=== PATIENT | male | born 1955 | race Caucasian/White ===

== ENCOUNTER 2020-06-04 10:45 | Inpatient (IN) ==
[2020-06-04] MEDS ORDERED: IOPAMIDOL 100 ML BOTTLE IV ONE (10:46)
[2020-06-04] MEDS ORDERED: DILTIAZEM 25 MG/5 ML VIAL IV ONE (11:11)
[2020-06-04] MEDS ORDERED: DILTIAZEM 125 MG in DEXTROSE 5% IN WATER 100 ML IV SCH (11:15)
--- NOTE | 2020-06-04 11:34 | Emergency Department Note ---
SOB HPI General Chief Complaint: Shortness of Breath/Dyspnea Stated Complaint: SOB Time Seen by Provider: 06/04/20 10:53 Source: patient Mode of arrival: wheelchair Limitations: no limitations and altered mental status (The patient is somewhat somnolent but able to carry on conversation.) History of Present Illness HPI Narrative: Narrative: Presents to room T8 for evaluation of shortness of breath and chest tightness with palpitations. The patient has a past medical history of atrial fibrillation and is currently taking warfarin. The patient also has peripheral vascular disease and has had revascularization in the past. The patient has chronic claudication and lower extremity discoloration. The patient has a chronic wound on the dorsum of his right second toe. The patient reports symptoms started last night with worsening tightness in his chest and associated shortness of breath. On arrival the patient is noted to be hypoxic and dyspneic and somewhat somnolent. The patient denies any new symptoms in his lower extremities and states that they are "always this way". No reported fevers or chills. No cough or sputum production. No nausea vomiting. Symptoms are constant. No exacerbating or alleviating factors reported. Related Data Home Medications Medication Instructions Recorded Confirmed lisinopril PO 01/30/20 02/08/20 spironolactone PO 01/30/20 02/08/20 torsemide mg PO 01/30/20 02/08/20 warfarin 10 mg PO 01/30/20 02/08/20 Previous Rx's Medication Instructions Recorded gabapentin 300 mg capsule 300 mg .ROUTE .COMPLEX #90 cap 02/08/20 tramadol 50 mg tablet 50 mg PO QHS PRN #20 tab 02/08/20 ondansetron 4 mg PO Q6H PRN #10 tab 02/18/20 tramadol 50 mg PO Q6H PRN #10 tab 02/28/20 naproxen sodium [Anaprox DS] 550 mg PO BID #20 tab 04/26/20 penicillin V potassium 500 mg PO TID #10 tab 04/26/20 Allergies Allergy/AdvReac Type Severity Reaction Status Date / Time No Known Drug Allergies Allergy Verified 06/04/20 10:57 Review of Systems ROS ROS Narrative: Narrative: All systems ED: reviewed and negative except as stated. [facility] Narrative Patient History Narrative: Narrative: Medical/Surgical/Family History All Active Problems (Updated 06/04/20 @ 14:57 by Bright Campbell MD) Acute hypotension (Acute) Bradycardia (Acute) Acute dehydration (Acute) Nausea (Acute) Peripheral neuropathy (Acute) Odontalgia (Acute) Chest tightness (Acute) Dyspnea (Acute) Pulmonary edema (Acute) Atrial fibrillation (Acute) Acute dyspnea (Acute) Chest pain (Acute) Atrial fibrillation with RVR (Acute) Peripheral vascular disease (Acute) Difficulty walking (Chronic) Numbness (Chronic) Weakness (Chronic) Heartburn (Chronic) SOB (shortness of breath) (Chronic) Chronic cough (Chronic) Fluttering heart (Chronic) Palpitation (Chronic) Ringing in ears (Chronic) Weight loss (Chronic) Heart disease (Chronic) Venous stasis (Chronic) Right leg pain (Chronic) GERD (gastroesophageal reflux disease) (Chronic) History of DVT (deep vein thrombosis) (Chronic) Bronchitis (Chronic) Chronic pain (Chronic) Illicit drug use (Chronic) Alcohol abuse (Chronic) Hyperlipidemia (Chronic) Hypertension (Chronic) Congestive heart failure (Chronic) Coronary heart disease (Chronic) Arrhythmia (Chronic) Blood clot in vein (Chronic) Bilateral leg pain (Chronic) No pertinent past surgical history (Chronic) Chronic stasis dermatitis (Chronic) Peripheral neuropathy (Chronic) Chest pain (Chronic) Stasis dermatitis of both legs (Chronic) Atrial fibrillation with RVR (Chronic) Medical History (Updated 06/04/20 @ 14:57 by Bright Campbell MD) Alcohol abuse Arrhythmia Atrial fibrillation with RVR Bilateral leg pain Blood clot in vein both legs Bronchitis Chest pain Chronic cough Chronic pain Chronic stasis dermatitis Congestive heart failure Coronary heart disease Difficulty walking Fluttering heart GERD (gastroesophageal reflux disease) Heart disease Heartburn History of DVT (deep vein thrombosis) Hyperlipidemia Hypertension Illicit drug use Numbness Palpitation Peripheral neuropathy Right leg pain Ringing in ears SOB (shortness of breath) Stasis dermatitis of both legs Venous stasis Weakness Weight loss Surgical History No pertinent past surgical history Family History Mother Diabetes Heart attack Bruising Heart disease Clotting disorder Father Brainstem stroke Clotting disorder Grandmother Leukemia Cancer Sister High blood pressure Chronic pain Heart disease Diabetes Social History Smoking Status: Current every day smoker Alcohol Intake Frequency: a few times a week Substance Use: marijuana Exam Narrative Narrative: Narrative: General Limitations: no limitations and altered mental status (The patient is somewhat somnolent but able to carry on conversation.) General appearance: Present alert and in distress (The patient does seem to have some mild respiratory distress) Head Head: Present atraumatic, normocephalic and normal inspection Eye Eye: Present normal appearance and EOMI; Absent conjunctival injection ENT ENT: Present normal exam and mucous membranes moist Neck Neck: Present normal inspection and trachea midline Respiratory Respiratory: Present normal lung sounds bilaterally and decreased breath sounds Cardiovascular Cardiovascular: Present tachycardia, irregular rhythm and normal heart sounds Adbominal Abdominal: Present soft; Absent distention, tenderness, guarding and rebound Extremities Extremities: Present other (Patient has violaceous changes of chronic venous sta sis/peripheral vascular disease. The patient does have some chronic nonhealing wounds on the medial aspect of the right pretibial region. He also has a nonhealing wound noted on the right foot.); Absent tenderness Back Back: Present normal inspection; Absent tenderness Neurological Neurological: Present alert, oriented X3 and CN II-XII intact; Absent motor sensory deficit Psychiatric Psychiatric: Present normal affect and normal mood Skin Skin: Present warm (WNL) and dry; Absent rash Course Vital Signs Vital signs: Vital Signs Pulse Oximetry (%) 80 L 06/04/20 10:45 Temperature 95.6 F L 06/04/20 10:46 Pulse Rate 91 H 06/04/20 13:55 Respiratory Rate 32 H 06/04/20 13:31 Blood Pressure 120/79 06/04/20 13:55 Pulse Oximetry (%) 93 06/04/20 13:55 [facility] MDM Narrative Medical decision making narrative: Narrative: Medical Records Medical records reviewed: Yes I reviewed the patient's medical records. Lab Data Lab results reviewed: Yes I reviewed the patient's lab results. Result diagrams: 06/04/20 11:48 06/04/20 11:48 Labs: Lab Results 06/04/20 06/04/20 06/04/20 Range/Units 11:48 11:48 11:48 WBC 5.5 (4.5-11.0) K/mcL RBC 4.02 L (4.50-5.90) M/mcL Hgb 10.6 L (13.5-16.5) g/dL Hct 34.4 L (41.0-55.0) % MCV 85.6 (80.0-100.0) fL MCH 26.4 (26.0-34.0) pg MCHC 30.8 L (31.0-36.0) g/dL RDW 17.6 H (11.5-14.5) % Plt Count 355 (140-440) K/mcL MPV 10.6 H (7.4-10.4) fL Neut % (Auto) 73.0 (38.0-78.0) % Lymph % (Auto) 18.7 (15.0-49.0) % Alexander % (Auto) 7.0 (1.0-12.0) % Eos % (Auto) 0.4 (0.0-7.0) % Baso % (Auto) 0.9 (0.0-2.0) % Lymph # (Auto) 1.02 L (1.50-4.80) K/mcL Alexander # (Auto) 0.38 (0.10-0.90) K/mcL Eos # (Auto) 0.02 (0.00-0.70) K/mcL Baso # (Auto) 0.05 (0.00-0.20) K/mcL Absolute Neutrophils 3.99 (1.80-8.00) K/mcL PT (11.9-14.5) sec INR (0.9-1.1) VBG Lactic Acid (0.5-2.0) mmol/L Sodium 135 (133-145) mmol/L Potassium 4.7 (3.3-5.1) mmol/L Chloride 100 (96-108) mmol/L Carbon Dioxide 23 (22-30) mmol/L Anion Gap 12.0 (8.0-16.0) BUN 23 (8-23) mg/dL Creatinine 1.1 (0.7-1.2) mg/dL GFR Calculation 69 Glucose 120 H (70-105) mg/dL Calcium 9.3 (8.6-10.4) mg/dL Total Bilirubin 1.3 H (0.1-1.0) mg/dL AST 72 H (<40) U/L ALT 125 H (<40) U/L Alkaline Phosphatase 157 H (39-117) U/L Troponin T 0.03 H (<0.03) ng/mL NT-Pro-B Natriuret Pep 59325.0 H (<125.0) pg/mL Total Protein 7.4 (5.9-8.4) gm/dL Albumin 3.5 (3.2-5.2) gm/dL Globulin 3.9 H (2.2-3.7) gm/dL Albumin/Globulin Ratio 0.9 L (1.0-2.3) 06/04/20 06/04/20 Range/Units 11:48 11:48 WBC (4.5-11.0) K/mcL RBC (4.50-5.90) M/mcL Hgb (13.5-16.5) g/dL Hct (41.0-55.0) % MCV (80.0-100.0) fL MCH (26.0-34.0) pg MCHC (31.0-36.0) g/dL RDW (11.5-14.5) % Plt Count (140-440) K/mcL MPV (7.4-10.4) fL Neut % (Auto) (38.0-78.0) % Lymph % (Auto) (15.0-49.0) % Alexander % (Auto) (1.0-12.0) % Eos % (Auto) (0.0-7.0) % Baso % (Auto) (0.0-2.0) % Lymph # (Auto) (1.50-4.80) K/mcL Alexander # (Auto) (0.10-0.90) K/mcL Eos # (Auto) (0.00-0.70) K/mcL Baso # (Auto) (0.00-0.20) K/mcL Absolute Neutrophils (1.80-8.00) K/mcL PT 51.7 H (11.9-14.5) sec INR 5.4 H (0.9-1.1) VBG Lactic Acid 3.8 H (0.5-2.0) mmol/L Sodium (133-145) mmol/L Potassium (3.3-5.1) mmol/L Chloride (96-108) mmol/L Carbon Dioxide (22-30) mmol/L Anion Gap (8.0-16.0) BUN (8-23) mg/dL Creatinine (0.7-1.2) mg/dL GFR Calculation Glucose (70-105) mg/dL Calcium (8.6-10.4) mg/dL Total Bilirubin (0.1-1.0) mg/dL AST (<40) U/L ALT (<40) U/L Alkaline Phosphatase (39-117) U/L Troponin T (<0.03) ng/mL NT-Pro-B Natriuret Pep (<125.0) pg/mL Total Protein (5.9-8.4) gm/dL Albumin (3.2-5.2) gm/dL Globulin (2.2-3.7) gm/dL Albumin/Globulin Ratio (1.0-2.3) ED POC Tests ED POC Tests: VICENTA - Influenza A Negative VICENTA - Influenza B Negative VICENTA - SARS Antigen Negative Radiology Data Radiology results reviewed: Yes I reviewed the patient's radiology results. EKG Data EKG #1: EKG attestation: Yes I reviewed and interpreted this EKG., Yes There are no EKG findings of acute coronary syndrome and Yes This EKG will be read by engineering mathematician EKG results narrative: Atrial fibrillation with rapid ventricular response, rate 150, prolonged QTC at 506, normal ST, normal QRS, no ectopy Rhythm Strip Data Rhythm Strip Rate: 145 Interpretation: Atrial fibrillation with rapid ventricular response Pulse Oximetry Data Pulse Ox %: 80 Interpretation: room air, hypoxia, corrected after being placed on 4 L via nasal cannula CC TIME Critical Care Time Critical Care Time: Yes Total Critical Care Time: 60 Attestation: Approximately 60 minutes of critical care time was used in order to assess and manage the high probability of imminent or life threatening deterioration which required my highest level of preparedness and interventions with frequent patient assessments. This time is excluding time spent on separately billable procedures. On arrival patient presented with shortness of breath, tachycardia and chest pressure. The patient's initial EKG showed an atrial fibrillation with rapid ventricular response and a rate of 150. There was no injury or ischemia pattern. The patient was treated initially with a Cardizem bolus followed by Cardizem drip. This was titrated to effect and ultimately his heart rate was re duced to the mid 90s. The patient's chest x-ray did did show evidence of moderate to severe pulmonary edema pleural effusions. The patient's BNP is markedly elevated. The patient was treated with a dose of IV Lasix. The patient's labs including CBC, chemistry and troponin are otherwise unremarkable. The patient's lactic acid level is elevated however I do not suspect a source of infection at this time. Blood cultures were drawn. The patient does take warfarin and his INR was noted to be elevated at 5.4. There is no clinical evidence to suspect bleeding and I believe the patient can be observed and does not require vitamin K or additional INR correction at this time. I did discuss the case with the hospitalist. The patient does have chronic wounds on his lower extremity and thus a single dose of empiric antibiotics was given including vancomycin and Zosyn. The patient will be admitted at this time. Discharge Plan Patient/Caregiver Discharge Instructions Pt seen by MECHANICAL MAINTENANCE FOREMAN/PA only: No Clinical Impression: Acute dyspnea, Pulmonary edema, Chest pain, Atrial fibrillation with RVR, Peripheral vascular disease Patient Disposition: Xfer As Inpt ([facility]) Follow up with: Noam Caputo DO [Primary Care Provider] - Prescriptions: No Action tramadol 50 mg tablet 50 mg PO QHS PRN (Reason: pain) Qty: 20 RF: 0 gabapentin [Neurontin] 300 mg capsule 300 mg .ROUTE .COMPLEX Qty: 90 RF: 0 spironolactone 25 mg tablet PO RF: 0 warfarin 5 mg tablet 10 mg PO RF: 0 lisinopril 40 mg tablet PO RF: 0 torsemide 20 mg tablet PO RF: 0 ondansetron 4 mg tablet,disintegrating 4 mg PO Q6H PRN (Reason: nausea and vomiting) Qty: 10 RF: 0 tramadol 50 mg tablet 50 mg PO Q6H PRN (Reason: pain) Qty: 10 RF: 0 penicillin V potassium 500 mg tablet 500 mg PO TID Qty: 10 RF: 0 naproxen sodium [Anaprox DS] 550 mg tablet 550 mg PO BID Qty: 20 RF: 0
[2020-06-04 12:30] LABS: Basophils # (Auto) 0.05 K/mcL (0.00-0.20); Basophils % (Auto) 0.9 % (0.0-2.0); Eosinophils # (Auto) 0.02 K/mcL (0.00-0.70); Eosinophils % (Auto) 0.4 % (0.0-7.0); Hematocrit 34.4 % (41.0-55.0); Hemoglobin 10.6 g/dL (13.5-16.5); Lymphocytes # (Auto) 1.02 K/mcL (1.50-4.80); Lymphocytes % (Auto) 18.7 % (15.0-49.0); Mean Cell Volume 85.6 fL (80.0-100.0); Mean Corpuscular HGB Conc 30.8 g/dL (31.0-36.0); Mean Platelet Volume 10.6 fL (7.4-10.4); Monocytes # (Auto) 0.38 K/mcL (0.10-0.90); Platelet Count 355 K/mcL (140-440); RBC 4.02 M/mcL (4.50-5.90); Red Cell Distribution Width 17.6 % (11.5-14.5); WBC 5.5 K/mcL (4.5-11.0)
[2020-06-04 12:51] LABS: ALT/SGPT 125 U/L (<40); AST/SGOT 72 U/L (<40); Albumin 3.5 gm/dL (3.2-5.2); Albumin/Globulin Ratio 0.9 (1.0-2.3); Alkaline Phosphatase 157 U/L (39-117); Bilirubin,Total 1.3 mg/dL (0.1-1.0); Blood Urea Nitrogen 23 mg/dL (8-23); Calcium 9.3 mg/dL (8.6-10.4); Carbon Dioxide 23 mmol/L (22-30); Chloride 100 mmol/L (96-108); Globulin 3.9 gm/dL (2.2-3.7); Glomerular Filtration Rate 69; Glucose 120 mg/dL (70-105)
[2020-06-04 12:54] LABS: INR 5.4 (0.9-1.1); Prothrombin Time 51.7 sec (11.9-14.5)
--- NOTE | 2020-06-04 13:39 | XRay Report ---
CLINICAL INFORMATION: soa COMPARISON: 05/04/2020 FINDINGS: Moderate cardiomegaly is unchanged. Mediastinum is unremarkable. Pulmonary vessels are markedly congested there is moderate peribronchovascular edema. Mild airspace disease in both medial bases has improved. Small bilateral pleural effusions noted. IMPRESSION: Moderate/severe CHF Improving bibasilar infiltrates - now small Interpreted and Authenticated by: Erlin Espinoza 06/04/20
[2020-06-04] MEDS ORDERED: FUROSEMIDE 40 MG/4 ML VIAL IV ONE (14:04)
--- NOTE | 2020-06-04 14:08 | Cat Scan Report ---
CLINICAL INFORMATION: Positive COMPARISON: None. TECHNIQUE: 80ml of Isovue-370 were injected intravenously. Using SmartPrep to maximize pulmonary artery opacification, .625mm helical slices were obtained from the lung apices through the lung bases. Following reconstruction, 2.5 mm sagittal, coronal, and axial reformations were processed. The exam was reviewed at mediastinal, lung, and bone windows. The exam was performed using radiation dose optimization techniques including, but not limited to, automated exposure control, adjustment of the mA and/or kV according to patient size and use of iterative reconstruction technique. FINDINGS: Pulmonary artery opacification is suboptimal, however pulmonary arteries are normal diameter and no central emboli are identified. Thoracic aorta is not opacified but is normal diameter. Mildly enlarged lymph nodes in the lower mediastinum including the lower paratracheal, AP window and pericarinal region ranging up to 18 mm. Findings compatible with benign reactive adenopathy. The esophagus is grossly normal. The thyroid is unremarkable. Pulmonary parenchymal windows show mild congestion of peripheral pulmonary vasculature and groundglass airspace disease in a peribronchovascular distribution with mild edema in the interlobular septa and a mosaic pattern. In addition, there are moderate bilateral pleural effusions. Effusions have resulted in subsegmental compressive atelectasis in the posterior lower lobes. No definite infiltrates. Bones soft tissues of the chest wall show no abnormality. Images should the superior abdomen show 3-4 stones the gallbladder ranging up to 1 cm. Moderate pancreatic atrophy appreciated IMPRESSION: 1. No evidence of pulmonary embolus. 2. Moderate CHF. 3. Moderate bilateral pleural effusions 4. Mild atelectasis in the lung bases. 5. Cholelithiasis 6. Moderate pancreatic atrophy Interpreted and Authenticated by: Erlin Espinoza 06/04/20
[2020-06-04] MEDS ORDERED: VANCOMYCIN 1,000 MG in 0.9 % SODIUM CHLORIDE 250 ML IV ONE (14:29)
[2020-06-04] MEDS ORDERED: PIPERACILLIN SODIUM/TAZOBACTAM 4.5 GM in DEXTROSE 5% IN WATER 50 ML IV ONE (14:29)
--- NOTE | 2020-06-04 14:37 | Internal Med History&Physical ---
HPI History of Present Illness Patient information: Note initiated : 06/04/20 at 2:36 pm Service Date, if different from initiated Date: [] Patient: Pernell Granda a 65 y/o M admitted on for Shortness of breath. Chief Complaint: [] History of present illness: Mr. Granda is a 65 year old M with history of severe peripheral disease/A. fib on anticoagulation/morbid obesity/chronic lower extremity lymphedema/venous ulcers who presents to the ER with worsening shortness of breath/lightheadedness dizziness and chest palpitation. Patient symptoms started roughly 4 days prior to presentation with gradually progressive dyspnea/orthopnea and has not been able to sleep over the last 4 nights or able to lay supine. He has associated nausea and heaving. Increasing concerns he now presents for evaluation. Initial work-up was consistent with A. fib RVR and acute pulmonary edema on chest imaging with pleural effusion. Hospital service was consulted after patient was started on diltiazem drip achieving rate control around 120. Also patient was started on antibiotic coverage after cultures were drawn for suspicious infiltrates noted on chest imaging. At the time of my evaluation patient is very anxious, unable to talk in full sentences. On for his oxygen maintaining sats mid 90s which has improved from low 80s on presentation. He denies hemoptysis/productive sputum/fever, shaking chills, diarrhea, hematuria, dysuria. He endorses a chronic lower extremity dusky discoloration below the knee with ulceration second toe. Endorses that he has had a lower extremity bypass that has improved the circulation. Is currently on anticoagulation on Coumadin with current INR at 5.3. He has been fired from his cardiology and PCP care due to poor adherence and a no-show for appointments. He denies excessive salt diet/sick contact/NSAID use Review of systems 10 point review system was performed and is negative except for ones discussed above PFSH PFSH All Active Problems (Updated 06/04/20 @ 14:57 by Bright Campbell MD) Acute hypotension (Acute) Bradycardia (Acute) Acute dehydration (Acute) Nausea (Acute) Peripheral neuropathy (Acute) Odontalgia (Acute) Chest tightness (Acute) Dyspnea (Acute) Pulmonary edema (Acute) Atrial fibrillation (Acute) Acute dyspnea (Acute) Chest pain (Acute) Atrial fibrillation with RVR (Acute) Peripheral vascular disease (Acute) Difficulty walking (Chronic) Numbness (Chronic) Weakness (Chronic) Heartburn (Chronic) SOB (shortness of breath) (Chronic) Chronic cough (Chronic) Fluttering heart (Chronic) Palpitation (Chronic) Ringing in ears (Chronic) Weight loss (Chronic) Heart disease (Chronic) Venous stasis (Chronic) Right leg pain (Chronic) GERD (gastroesophageal reflux disease) (Chronic) History of DVT (deep vein thrombosis) (Chronic) Bronchitis (Chronic) Chronic pain (Chronic) Illicit drug use (Chronic) Alcohol abuse (Chronic) Hyperlipidemia (Chronic) Hypertension (Chronic) Congestive heart failure (Chronic) Coronary heart disease (Chronic) Arrhythmia (Chronic) Blood clot in vein (Chronic) Bilateral leg pain (Chronic) No pertinent past surgical history (Chronic) Chronic stasis dermatitis (Chronic) Peripheral neuropathy (Chronic) Chest pain (Chronic) Stasis dermatitis of both legs (Chronic) Atrial fibrillation with RVR (Chronic) Medical History (Updated 06/04/20 @ 14:57 by Bright Campbell MD) Alcohol abuse Arrhythmia Atrial fibrillation with RVR Bilateral leg pain Blood clot in vein both legs Bronchitis Chest pain Chronic cough Chronic pain Chronic stasis dermatitis Congestive heart failure Coronary heart disease Difficulty walking Fluttering heart GERD (gastroesophageal reflux disease) Heart disease Heartburn History of DVT (deep vein thrombosis) Hyperlipidemia Hypertension Illicit drug use Numbness Palpitation Peripheral neuropathy Right leg pain Ringing in ears SOB (shortness of breath) Stasis dermatitis of both legs Venous stasis Weakness Weight loss Surgical History No pertinent past surgical history Family History Mother Diabetes Heart attack Bruising Heart disease Clotting disorder Father Brainstem stroke Clotting disorder Grandmother Leukemia Cancer Sister High blood pressure Chronic pain Heart disease Diabetes Social History (Updated 02/08/20 @ 14:19 by Tanisha Hopson) marital status: education level: master's degree occupational status: retired occupation: psychologist alcohol intake frequency: a few times a week substance use type: marijuana MEDS/ALLERGIES Home Medications and Allergies Home Medications Medication Instructions Recorded Confirmed Type lisinopril PO 01/30/20 02/08/20 History spironolactone PO 01/30/20 02/08/20 History torsemide mg PO 01/30/20 02/08/20 History warfarin 10 mg PO 01/30/20 02/08/20 History gabapentin 300 mg capsule 300 mg .ROUTE .COMPLEX #90 cap 02/08/20 02/08/20 Rx tramadol 50 mg tablet 50 mg PO QHS PRN #20 tab 02/08/20 02/08/20 Rx ondansetron 4 mg PO Q6H PRN #10 tab 02/18/20 Rx tramadol 50 mg PO Q6H PRN #10 tab 02/28/20 Rx naproxen sodium [Anaprox DS] 550 mg PO BID #20 tab 04/26/20 Rx penicillin V potassium 500 mg PO TID #10 tab 04/26/20 Rx Allergies Allergy/AdvReac Type Severity Reaction Status Date / Time No Known Drug Allergies Allergy Verified 06/04/20 10:57 EXAM Constitutional Vitals: Temp Pulse Resp BP Pulse Ox 95.6 F L 91 H 32 H 120/79 93 06/04/20 10:46 06/04/20 13:55 06/04/20 13:31 06/04/20 13:55 06/04/20 13:55 Tachypneic, unable to talk in full sentences, very distressed and anxious Head normocephalic Oral cavity moist No ear nose discharge Eye movement symmetrical Neck supple no lymphadenopathy S1-S2 tachycardia regular Unable to talk in full sentences, labored breathing on for his oxygen Nondistended nontender abdomen Bilateral lower extremity dusky blue discoloration/loss of hairs from knee downwards. Ulceration second toe Skin otherwise no suspicious lesion then as described above Psych anxious but no hallucination Neuro moving all 4 extremities DATA Data Completed and Pending Labs: Labs from last 24 hours 06/04/20 06/04/20 06/04/20 11:48 11:48 11:48 WBC RBC Hgb Hct MCV MCH MCHC RDW Plt Count MPV Neut % (Auto) Lymph % (Auto) [place] % (Auto) Eos % (Auto) Baso % (Auto) Lymph # (Auto) [place] # (Auto) Eos # (Auto) Baso # (Auto) Absolute Neutrophils PT 51.7 H INR 5.4 H VBG Lactic Acid 3.8 H Sodium Potassium Chloride Carbon Dioxide Anion Gap BUN Creatinine GFR Calculation Glucose Calcium Total Bilirubin AST ALT Alkaline Phosphatase Troponin T 0.03 H NT-Pro-B Natriuret Pep Total Protein Albumin Globulin Albumin/Globulin Ratio 06/04/20 06/04/20 11:48 11:48 WBC 5.5 RBC 4.02 L Hgb 10.6 L Hct 34.4 L MCV 85.6 MCH 26.4 MCHC 30.8 L RDW 17.6 H Plt Count 355 MPV 10.6 H Neut % (Auto) 73.0 Lymph % (Auto) 18.7 [place] % (Auto) 7.0 Eos % (Auto) 0.4 Baso % (Auto) 0.9 Lymph # (Auto) 1.02 L [place] # (Auto) 0.38 Eos # (Auto) 0.02 Baso # (Auto) 0.05 Absolute Neutrophils 3.99 PT INR VBG Lactic Acid Sodium 135 Potassium 4.7 Chloride 100 Carbon Dioxide 23 Anion Gap 12.0 BUN 23 Creatinine 1.1 GFR Calculation 69 Glucose 120 H Calcium 9.3 Total Bilirubin 1.3 H AST 72 H ALT 125 H Alkaline Phosphatase 157 H Troponin T NT-Pro-B Natriuret Pep 63355.0 H Total Protein 7.4 Albumin 3.5 Globulin 3.9 H Albumin/Globulin Ratio 0.9 L A/P Narrative A/P Narrative: * Acute decompensated heart failure with Pulmonary edema likely diastolic secondary to RVR however-rule out systolic competent, echocardiogram, diuresis, rate control measures optimization based on echo finding. Schedule outpatient cardiology follow-up. * A. fib with RVR started on diltiazem drip. Continue rate control. Anticoagulated on Coumadin current INR 5.3 * Acute hypoxic respiratory failure combination of pulmonary edema/pneumonia. Continue supplemental oxygen/noninvasive mechanical ventilation as indicated. Serial ABG. Current ABG 7.53// on 2 L * Basilar infiltrate-rule out pneumonia, procalcitonin, started on antibiotics in the ER. De-escalate if no fever or leukocytosis and normal procalcitonin. * Bilateral pleural effusion likely secondary CHF. Continue diuresis and repeat interval chest imaging * LE wounds-history of PVD. Continue anticoagulation, wound care consult * Systemic inflammatory response syndrome secondary to above, elevated lactate however normal white count unlikely sepsis. May represent low cardiac output state with endorgan hypoperfusion * Neuropathy continue gabapentin * Degenerative disease continue home dose tramadol * Prophylaxis Coumadin, INR therapeutic Plan * ICU admission in light of acute hypoxic aspiratory failure/decompensated heart failure/pulmonary edema and severe sepsis. Initial Dickey 2 score 16 indicating high risk mortality * Antibiotic coverage * Rate control measures,, aggressive diuresis, CHF management * Echocardiogram and optimize CHF management based on findings * Pre-existing medical condition management on home medications * Wound care consult * Nutrition support * Coumadin dosing based on INR * Outpatient follow-up with cardiology on discharge Critical care time spent in excess of 35 minutes on management of hypoxic respiratory failure/A. fib RVR/pulmonary edema in addition to time spent on history and physical Time Spent With Patient Time: Total time spent is greater than 50% in coordination of care (as documented) at patient's floor/unit and/or counseling patient:
[2020-06-04] MEDS ORDERED: POTASSIUM CHLORIDE 40 MEQ in DEXTROSE 5% IN WATER 500 ML IV PRN (17:08)
[2020-06-04] MEDS ORDERED: POLYETHYLENE GLYCOL 3350 17 GM PACKET PO PRN (17:08)
[2020-06-04] MEDS ORDERED: ACETAMINOPHEN 650 MG/65 ML BAG IV PRN (17:08)
[2020-06-04] MEDS ORDERED: NEUTRA PHOS 1 PACKET PO PRN (17:08)
[2020-06-04] MEDS ORDERED: BISACODYL 10 MG SUPP.RECT PR PRN (17:08)
[2020-06-04] MEDS ORDERED: ONDANSETRON 4 MG/2 ML VIAL IV PRN (17:08)
[2020-06-04] MEDS ORDERED: MAGNESIUM SULFATE 2 GM/50 ML BAG IV PRN (17:08)
[2020-06-04] MEDS ORDERED: MELATONIN 3 MG TABLET PO PRN (17:08)
[2020-06-04] MEDS ORDERED: METOPROLOL TARTRATE 5 MG/5 ML VIAL IV PRN (17:08)
[2020-06-04] MEDS ORDERED: VANCOMYCIN PER PHARMACY IV SCH (17:08)
[2020-06-04] MEDS: FUROSEMIDE 40 MG/4 ML VIAL IV SCH (21:00)
[2020-06-04] MEDS: DOCUSATE SODIUM 100 MG CAPSULE PO SCH ×2 (21:04→21:06)
[2020-06-04] MEDS: SENNOSIDES/DOCUSATE SODIUM 1 TAB TABLET PO SCH ×2 (21:04→21:06)
[2020-06-04] MEDS: 0.9 % SODIUM CHLORIDE 10 ML SYRINGE IV SCH (21:07)
[2020-06-05] MEDS ORDERED: DILTIAZEM 125 MG/25 ML VIAL IV ONE (00:14)
[2020-06-05] MEDS: PIPERACILLIN SODIUM/TAZOBACTAM 3.375 GM in DEXTROSE 5% IN WATER 50 ML IV SCH ×2 (00:21→05:41)
[2020-06-05] MEDS: DILTIAZEM 125 MG in DEXTROSE 5% IN WATER 100 ML IV SCH ×3 (00:21→23:21)
[2020-06-05] MEDS: ACETAMINOPHEN 325 MG TABLET PO PRN ×2 (04:40→11:54)
[2020-06-05] MEDS: ONDANSETRON 4 MG ODT TABLET SL PRN ×2 (05:00→20:17)
[2020-06-05] MEDS: 0.9 % SODIUM CHLORIDE 10 ML SYRINGE IV SCH ×3 (05:41→21:20)
[2020-06-05] MEDS: FUROSEMIDE 40 MG/4 ML VIAL IV SCH ×3 (05:41→21:19)
[2020-06-05 06:46] LABS: Basophils # (Auto) 0.05 K/mcL (0.00-0.20); Basophils % (Auto) 0.9 % (0.0-2.0); Eosinophils # (Auto) 0.06 K/mcL (0.00-0.70); Eosinophils % (Auto) 1.1 % (0.0-7.0); Hematocrit 33.2 % (41.0-55.0); Hemoglobin 10.3 g/dL (13.5-16.5); Lymphocytes # (Auto) 1.17 K/mcL (1.50-4.80); Lymphocytes % (Auto) 21.3 % (15.0-49.0); Mean Cell Volume 83.8 fL (80.0-100.0); Mean Platelet Volume 10.8 fL (7.4-10.4); Monocytes # (Auto) 0.59 K/mcL (0.10-0.90); Monocytes % (Auto) 10.7 % (1.0-12.0); Platelet Count 382 K/mcL (140-440); RBC 3.96 M/mcL (4.50-5.90); Red Cell Distribution Width 17.6 % (11.5-14.5); WBC 5.5 K/mcL (4.5-11.0)
[2020-06-05 07:08] LABS: ALT/SGPT 165 U/L (<40); AST/SGOT 127 U/L (<40); Albumin 3.4 gm/dL (3.2-5.2); Albumin/Globulin Ratio 0.9 (1.0-2.3); Alkaline Phosphatase 141 U/L (39-117); Bilirubin,Direct 0.7 mg/dL (<0.3); Bilirubin,Total 1.2 mg/dL (0.1-1.0); Blood Urea Nitrogen 22 mg/dL (8-23); Calcium 8.9 mg/dL (8.6-10.4); Carbon Dioxide 25 mmol/L (22-30); Chloride 97 mmol/L (96-108); Globulin 3.7 gm/dL (2.2-3.7); Glomerular Filtration Rate 62; Glucose 117 mg/dL (70-105); Lactate Dehydrogenase 336 U/L (135-225); Phosphorous 3.2 mg/dL (2.5-4.5); Triglycerides 60 mg/dL (<150); Uric Acid 8.3 mg/dL (2.5-8.0)
[2020-06-05] MEDS: MULTIVIT,THER IRON,CA,FA & MIN 1 TABLET PO SCH (08:02)
[2020-06-05] MEDS: THIAMINE 100 MG TABLET PO SCH (08:02)
[2020-06-05] MEDS: DOCUSATE SODIUM 100 MG CAPSULE PO SCH ×2 (08:03→20:32)
--- NOTE | 2020-06-05 10:35 | Internal Med Progress Note ---
SUBJECTIVE Subjective Patient information: Note initiated : 06/05/20 at 10:32 am Service Date, if different from initiated Date: [] Patient: Pernell Granda 65 y/o M admitted on 06/04/20 for Shortness of breath. Chief Complaint: [] Interval history: Mr. Granda is a 65 year old M with history of severe peripheral disease/A. fib on anticoagulation/morbid obesity/chronic lower extremity lymphedema/venous ulcers who presents to the ER with worsening sh ortness of breath/lightheadedness dizziness and chest palpitation. Patient symptoms started roughly 4 days prior to presentation with gradually progressive dyspnea/orthopnea and has not been able to sleep over the last 4 nights or able to lay supine. He has associated nausea and heaving. Increasing concerns he now presents for evaluation. Initial work-up was consistent with A. fib RVR and acute pulmonary edema on chest imaging with pleural effusion. Hospital service was consulted after mac ent was started on diltiazem drip achieving rate control around 120. Also patient was started on antibiotic coverage after cultures were drawn for suspicious infiltrates noted on chest imaging. At the time of my evaluation patient is very anxious, unable to talk in full sentences. On for his oxygen maintaining sats mid 90s which has improved from low 80s on presentation. He denies hemoptysis/productive sputum/fever, shaking chills, diarrhea, hematuria, dysuria. He endorses a chronic lower extremity dusky discoloration below the knee with ulceration second toe. Endorses that he has had a lower extremity bypass that has improved the circulation. Is currently on anticoagulation on Coumadin with current INR at 5.3. He has been fired from his cardiology and PCP care due to poor adherence and a no-show for appointments. He denies excessive salt diet/sick contact/NSAID use 06/05-patient doing a lot better. Sitting on chair. Now on 4 L oxygen. Able to talk in near full sentences. No overnight fever chills. White count down to 5.5, hemoglobin 10.3, sodium 132, improving CHF with aggressive diuresis. Wound care consulted. No overnight fever chills. No additional concerns per nursing staff. Ambulating. Repeat blood gas/imaging. Not on noninvasive ventilation at this time. Address concerns Constitutional Vitals: Vital Signs Temp Pulse Resp BP Pulse Ox 97.6 F 93 H 18 155/122 90 06/05/20 08:01 06/04/20 21:44 06/05/20 08:41 06/05/20 08:01 06/05/20 10:32 Period Temp Pulse Resp BP Sys/Sebastian Pulse Ox Last 24 Hr 95.6 F-97.6 F 86-140 13-45 102-183/68-130 80-100 Intake and Output 06/04/20 06/05/20 06/05/20 21:59 05:59 13:59 Intake Total 380 1040 335 Output Total 1000 925 Balance -620 115 335 Weight 146.193 kg Alert oriented Nonlabored breathing on 4 L oxygen. Morbidly obese Pendulous abdomen Dusky induration lower extremity with venous ulcer left medial leg Intake & Output: Intake & Output 06/04/20 06/05/20 06/05/20 21:59 05:59 13:59 Intake Total 380 1040 335 Output Total 1000 925 Balance -620 115 335 Weight 146.193 kg Intake: IV 380 75 95 Cardizem 125 mg In Dextrose 5% 80 25 45 in Water 100 ml @ 5 MG/HR 5 mls /hr IV Q12H SUE Rx#:[id number] Zosyn 3.375 gm In Dextrose 5% 50 50 in Water 50 ml @ 100 mls/hr IV Q6H SUE Rx#:[id number] Zosyn 4.5 gm In Dextrose 5% in 50 Water 50 ml @ 100 mls/hr IV ONCE ONE Rx#:[id number] Vancomycin 1,000 mg In Sodium 250 Chloride 0.9% 250 ml @ 250 mls/ hr IV ONCE ONE Rx#:[id number] Oral 965 240 Output: Void Amount 1000 925 Other: Meal Breakfast Percent of Meal Consumed 75% Urine Appearance Clear Clear Urine Color Bright Yellow Bright Yellow OBJ DATA Labs CBC & Chem 7: 06/05/20 05:21 06/05/20 05:21 Labs: Abnormal Lab Results 06/05/20 06/05/20 06/04/20 05:21 05:21 11:48 RBC 3.96 L Hgb 10.3 L Hct 33.2 L MCHC RDW 17.6 H MPV 10.8 H Lymph # (Auto) 1.17 L PT INR VBG Lactic Acid Sodium 132 L Glucose 117 H Uric Acid 8.3 H Total Bilirubin 1.2 H Direct Bilirubin 0.7 H AST 127 H ALT 165 H Alkaline Phosphatase 141 H Lactate Dehydrogenase 336 H Troponin T NT-Pro-B Natriuret Pep Globulin Albumin/Globulin Ratio 0.9 L Procalcitonin 0.14 H 06/04/20 06/04/20 06/04/20 11:48 11:48 11:48 RBC Hgb Hct MCHC RDW MPV Lymph # (Auto) PT 51.7 H INR 5.4 H VBG Lactic Acid 3.8 H Sodium Glucose Uric Acid Total Bilirubin Direct Bilirubin AST ALT Alkaline Phosphatase Lactate Dehydrogenase Troponin T 0.03 H NT-Pro-B Natriuret Pep Globulin Albumin/Globulin Ratio Procalcitonin 06/04/20 06/04/20 11:48 11:48 RBC 4.02 L Hgb 10.6 L Hct 34.4 L MCHC 30.8 L RDW 17.6 H MPV 10.6 H Lymph # (Auto) 1.02 L PT INR VBG Lactic Acid Sodium Glucose 120 H Uric Acid Total Bilirubin 1.3 H Direct Bilirubin AST 72 H ALT 125 H Alkaline Phosphatase 157 H Lactate Dehydrogenase Troponin T NT-Pro-B Natriuret Pep 90146.0 H Globulin 3.9 H Albumin/Globulin Ratio 0.9 L Procalcitonin Meds: Medications Acetaminophen (Acetaminophen 325 Mg Tablet) 650 mg PO Q4-6HP PRN; Protocol PRN Reason: Per Pain Protocol/Fever > 101 Last Admin: 06/05/20 04:40 Dose: 650 mg Documented by: Albuterol/Ipratropium (Ipratropium/Albuterol 3 Ml Ampul.Neb) 3 ml NEB Q4HP PRN PRN Reason: Shortness Of Breath Bisacodyl (Bisacodyl 10 Mg Supp.Rect) 10 mg ID Q2-3DAYS PRN PRN Reason: Constipation Docusate Sodium (Docusate Sodium 100 Mg Capsule) 100 mg PO BID [facility] Last Admin: 06/05/20 08:03 Dose: 100 mg Documented by: Furosemide (Furosemide 40 Mg/4 Ml Vial) 20 mg IV Q8 SUE Last Admin: 06/05/20 05:41 Dose: 20 mg Documented by: Diltiazem HCl 125 mg/ Dextrose 125 mls @ 5 mls/hr IV Q12H SUE; Protocol Last Titration: 06/05/20 09:21 Dose: 10 mg/hr, 10 mls/hr Documented by: Potassium Chloride 40 meq/ (Dextrose) 520 mls @ 130 mls/hr IV UD PRN PRN Reason: K+ = or < 3.5 Acetaminophen (Ofirmev) 650 mg in 65 mls @ 130 mls/hr IV Q6HP PRN; Protocol PRN Reason: Per Pain Protocol/Fever > 101 Magnesium Sulfate (Magnesium Sulfate) 2 gm in 50 mls @ 50 mls/hr IV UD PRN PRN Reason: MG = or < 1.7 Piperacillin Sod/Tazobactam (Sod 3.375 gm/ Dextrose) 50 mls @ 100 mls/hr IV Q6H SUE; Protocol Last Infusion: 06/05/20 06:15 Dose: Infused Documented by: Iron Carb/Multivit/Cream Dumper/Folic Acid (Multivit,Ther Iron,Ca,Fa & Min 1 Tablet) 1 tab PO DAILY [facility] Last Admin: 06/05/20 08:02 Dose: 1 tab Documented by: Melatonin (Melatonin 3 Mg Tablet) 3 mg PO HSP PRN PRN Reason: Insomnia Metoprolol Tartrate (Metoprolol Tartrate 5 Mg/5 Ml Vial) 5 mg IV Q5M PRN PRN Reason: Heart Rate > 140 bpm Ondansetron HCl (Ondansetron 4 Mg Odt Tablet) 4 mg SL Q4-6HP PRN; Protocol PRN Reason: Nausea And Vomiting Last Admin: 06/05/20 05:00 Dose: 4 mg Documented by: Ondansetron HCl (Ondansetron 4 Mg/2 Ml Vial) 4 mg IV Q4-6HP PRN; Protocol PRN Reason: Nausea And Vomiting Polyethylene Glycol (Polyethylene Glycol 3350 17 Gm Packet) 17 gm PO DAILYP PRN PRN Reason: Constipation Potassium/Phosphorus/Sodium (Neutra Phos 1 Packet) 2 packet PO DAILYP PRN PRN Reason: PHOS <2.5 Senna/Docusate Sodium (Sennosides/Docusate Sodium 1 Tab Tablet) 1 tab PO HS [facility] Last Admin: 06/04/20 21:06 Dose: Not Given Documented by: Sodium Chloride (0.9 % Sodium Chloride 10 Ml Syringe) 10 ml IV Q8 [facility] Last Admin: 06/05/20 05:41 Dose: 10 ml Documented by: Thiamine HCl (Thiamine 100 Mg Tablet) 100 mg PO DAILY [facility] Last Admin: 06/05/20 08:02 Dose: 100 mg Documented by: Vancomycin HCl (Vancomycin Per Pharmacy) 1 order IV UD [facility]; Protocol Warfarin Sodium (Warfarin Per Pharmacy) 1 order PO DAILY@1400 SUE A/P Narrative A/P Narrative: * Acute decompensated heart failure with pulmonary edema likely diastolic secondary to RVR however-rule out systolic competent, awaiting echocardiogram and optimize management based on LV function, continue diuresis. Schedule outpatient cardiology follow-up. * A. fib with RVR improved on Cardizem. Continue rate control on extended- release beta-rei. Anticoagulated on Coumadin current INR 5.3 * Acute hypoxic respiratory failure combination of pulmonary edema. Continue supplemental oxygen/noninvasive mechanical ventilation as indicated. Serial ABG. Current ABG 7.53/ on 2 L * Basilar infiltrate-unlikely pneumonia. Negative procalcitonin. Normal white count. DC antibiotics * Bilateral pleural effusion likely secondary CHF. Continue diuresis and repeat interval chest imaging in 48 hours. Thoracentesis if persistent * LE wounds-history of PVD. Continue anticoagulation, wound care consult * Systemic inflammatory response syndrome secondary to above, elevated lactate however normal white count unlikely sepsis. May represent low cardiac output state with endorgan hypoperfusion * Neuropathy continue gabapentin * Degenerative disease continue home dose tramadol * Prophylaxis Coumadin, INR therapeutic Plan * Continue PCU care * DC antibiotic * Extended release beta-rei * Continue diuresis and optimize CHF management based on LV function * Repeat chest imaging in 48 hours and thoracentesis if persistent pleural effusion despite diuresis * Pre-existing medical condition management on home medications * Wound care consult * Nutrition support/physical therapy * Coumadin dosing based on INR * Outpatient follow-up with cardiology on discharge Critical care time spent in excess of 35 minutes on management of hypoxic respiratory failure/A. fib RVR/pulmonary edema in addition to time spent on history and physical Time Spent With Patient Time: Total time spent is greater than 50% in coordination of care (as documented) at patient's floor/unit and/or counseling patient: QUALITY VTE Deep Vein Thrombosis/Pulmonary Embolism Present on Admission: No
[2020-06-05] MEDS: METOPROLOL SUCCINATE 25 MG TAB.XL.24H PO SCH (11:54)
[2020-06-05] MEDS: DILTIAZEM 30 MG TABLET PO SCH ×2 (17:23→23:41)
[2020-06-05] MEDS: SENNOSIDES/DOCUSATE SODIUM 1 TAB TABLET PO SCH (20:32)
[2020-06-05] MEDS ORDERED: LORazepam 1 MG TABLET ONE (23:15)
[2020-06-05] MEDS ORDERED: GABAPENTIN 300 MG CAPSULE ONE (23:18)
[2020-06-05] MEDS: GABAPENTIN 300 MG CAPSULE PO SCH (23:20)
[2020-06-05] MEDS: LORazepam 1 MG TABLET PO PRN (23:21)
[2020-06-06] MEDS: DILTIAZEM 30 MG TABLET PO SCH ×4 (05:32→23:39)
[2020-06-06] MEDS: 0.9 % SODIUM CHLORIDE 10 ML SYRINGE IV SCH ×3 (05:32→20:36)
[2020-06-06] MEDS: FUROSEMIDE 40 MG/4 ML VIAL IV SCH ×3 (05:32→21:07)
[2020-06-06] MEDS: GABAPENTIN 300 MG CAPSULE PO SCH ×2 (08:04→20:36)
[2020-06-06] MEDS: THIAMINE 100 MG TABLET PO SCH (08:04)
[2020-06-06] MEDS: DOCUSATE SODIUM 100 MG CAPSULE PO SCH ×2 (08:04→20:34)
[2020-06-06] MEDS: MULTIVIT,THER IRON,CA,FA & MIN 1 TABLET PO SCH (08:04)
[2020-06-06] MEDS: METOPROLOL SUCCINATE 25 MG TAB.XL.24H PO SCH (08:04)
[2020-06-06 09:04] LABS: INR 3.7 (0.9-1.1); Prothrombin Time 38.5 sec (11.9-14.5)
--- NOTE | 2020-06-06 09:12 | XRay Report ---
HISTORY: Short of breath, evaluate for congestive heart failure or pneumonia FINDINGS: The heart is mildly enlarged. There are diffuse alveolar opacities throughout both lungs with the greatest consolidation around the right hilum and in the right lower lobe. One puncture normal. No pleural effusion is seen. There are calcified plaques in the aortic arch. IMPRESSION: Congestive heart failure with pulmonary edema. Superimposed pneumonia cannot be excluded. Interpreted and Authenticated by: Pernell Lancaster 06/06/20
[2020-06-06 09:31] LABS: Basophils # (Auto) 0.07 K/mcL (0.00-0.20); Basophils % (Auto) 1.1 % (0.0-2.0); Eosinophils # (Auto) 0.09 K/mcL (0.00-0.70); Eosinophils % (Auto) 1.4 % (0.0-7.0); Hematocrit 34.2 % (41.0-55.0); Hemoglobin 10.3 g/dL (13.5-16.5); Lymphocytes # (Auto) 1.31 K/mcL (1.50-4.80); Lymphocytes % (Auto) 19.7 % (15.0-49.0); Mean Cell Volume 86.4 fL (80.0-100.0); Mean Corpuscular HGB Conc 30.1 g/dL (31.0-36.0); Mean Platelet Volume 10.9 fL (7.4-10.4); Monocytes # (Auto) 0.79 K/mcL (0.10-0.90); Monocytes % (Auto) 11.9 % (1.0-12.0); Neutrophils % (Auto) 65.9 % (38.0-78.0); Platelet Count 352 K/mcL (140-440); RBC 3.96 M/mcL (4.50-5.90); Red Cell Distribution Width 17.7 % (11.5-14.5); WBC 6.7 K/mcL (4.5-11.0)
[2020-06-06] MEDS: DILTIAZEM 125 MG in DEXTROSE 5% IN WATER 100 ML IV SCH ×2 (09:36→23:39)
[2020-06-06 09:44] LABS: ALT/SGPT 286 U/L (<40); AST/SGOT 277 U/L (<40); Albumin 3.4 gm/dL (3.2-5.2); Albumin/Globulin Ratio 0.9 (1.0-2.3); Alkaline Phosphatase 145 U/L (39-117); Bilirubin,Direct 0.6 mg/dL (<0.3); Bilirubin,Total 1.1 mg/dL (0.1-1.0); Blood Urea Nitrogen 24 mg/dL (8-23); Calcium 8.6 mg/dL (8.6-10.4); Carbon Dioxide 27 mmol/L (22-30); Chloride 97 mmol/L (96-108); Globulin 3.9 gm/dL (2.2-3.7); Glomerular Filtration Rate 62; Glucose 107 mg/dL (70-105); Lactate Dehydrogenase 546 U/L (135-225); Phosphorous 3.8 mg/dL (2.5-4.5); Triglycerides 53 mg/dL (<150); Uric Acid 9.5 mg/dL (2.5-8.0)
--- NOTE | 2020-06-06 12:02 | General Surgery Consult Note ---
HPI Data of Consult Consult date: 06/06/20 Requesting physician: Jeremy Patel Primary Care Provider: Noam Caputo DO Consult Narrative Patient Information: Note initiated : 06/06/20 at 11:50 am Service Date, if different from initiated Date: [] Patient: Pernell Granda 65 y/o M admitted on 06/04/20 for Shortness of breath. Chief Complaint: [] Chief complaint: BLUE legs, SOB Acute on Chronic presentation. Reason for consult: Wound care consult for ulcer on Right leg and scabs on toes. cc:: CC: Ahsan Aquino Review of Systems All systems: reviewed and no additional remarkable complaints except as stated PFSH PFSH All Active Problems Acute hypotension (Acute) Bradycardia (Acute) Acute dehydration (Acute) Nausea (Acute) Peripheral neuropathy (Acute) Odontalgia (Acute) Chest tightness (Acute) Dyspnea (Acute) Pulmonary edema (Acute) Atrial fibrillation (Acute) Acute dyspnea (Acute) Chest pain (Acute) Atrial fibrillation with RVR (Acute) Peripheral vascular disease (Acute) Difficulty walking (Chronic) Numbness (Chronic) Weakness (Chronic) Heartburn (Chronic) SOB (shortness of breath) (Chronic) Chronic cough (Chronic) Fluttering heart (Chronic) Palpitation (Chronic) Ringing in ears (Chronic) Weight loss (Chronic) Heart disease (Chronic) Venous stasis (Chronic) Right leg pain (Chronic) GERD (gastroesophageal reflux disease) (Chronic) History of DVT (deep vein thrombosis) (Chronic) Bronchitis (Chronic) Chronic pain (Chronic) Illicit drug use (Chronic) Alcohol abuse (Chronic) Hyperlipidemia (Chronic) Hypertension (Chronic) Congestive heart failure (Chronic) Coronary heart disease (Chronic) Arrhythmia (Chronic) Blood clot in vein (Chronic) Bilateral leg pain (Chronic) No pertinent past surgical history (Chronic) Chronic stasis dermatitis (Chronic) Peripheral neuropathy (Chronic) Chest pain (Chronic) Stasis dermatitis of both legs (Chronic) Atrial fibrillation with RVR (Chronic) Medical History Alcohol abuse Arrhythmia Atrial fibrillation with RVR Bilateral leg pain Blood clot in vein both legs Bronchitis Chest pain Chronic cough Chronic pain Chronic stasis dermatitis Congestive heart failure Coronary heart disease Difficulty walking Fluttering heart GERD (gastroesophageal reflux disease) Heart disease Heartburn History of DVT (deep vein thrombosis) Hyperlipidemia Hypertension Illicit drug use Numbness Palpitation Peripheral neuropathy Right leg pain Ringing in ears SOB (shortness of breath) Stasis dermatitis of both legs Venous stasis Weakness Weight loss Surgical History No pertinent past surgical history Family History Mother Diabetes Heart attack Bruising Heart disease Clotting disorder Father Brainstem stroke Clotting disorder Grandmother Leukemia Cancer Sister High blood pressure Chronic pain Heart disease Diabetes Social History marital status: education level: master's degree occupational status: retired occupation: psychologist alcohol intake frequency: a few times a week substance use type: marijuana MEDS/ALLERGIES Home Medications and Allergies Home Medications Medication Instructions Recorded Confirmed Type lisinopril 40 mg PO DAILY 01/30/20 06/04/20 History spironolactone 25 mg PO QAM 01/30/20 06/04/20 History torsemide 20 mg PO BID 01/30/20 06/04/20 History warfarin 10 mg PO DAILY 01/30/20 06/04/20 History tramadol 50 mg PO Q6H PRN #10 tab 02/28/20 06/04/20 Rx gabapentin [Neurontin] 300 mg PO BID 06/04/20 06/04/20 History naproxen sodium [Anaprox DS] 550 mg PO BID PRN 06/04/20 06/04/20 History Allergies Allergy/AdvReac Type Severity Reaction Status Date / Time No Known Drug Allergies Allergy Verified 06/04/20 10:57 Physical Examination Vital Signs Vital signs: Temp Pulse Resp BP Pulse Ox 97.3 F 93 H 24 H 125/88 93 06/06/20 08:11 06/04/20 21:44 06/06/20 08:11 06/06/20 08:11 06/06/20 08:13 General physical appearance General physical exam: well developed, well nourished, moderate distress, no pain, chronically ill and obese Eyes Eye exam: PERRL and normal ocular movement ENT ENT exam: normal pinna, normal nares, normal mucosa and other (On supplemental O2 by NC) Head Head exam IM: Present atraumatic and normocephalic Neck Neck exam: no masses, trachea midline and no venous distension Respiratory Respiratory exam: normal respiratory effort (SOB on exertion. Talking in full sentences. O2 by NC) Respiratory exam: absent breath sounds: bilateral (Decreased air entry bases of lungs) Abdomen Abdomen: Present soft, non tender and bowel sounds Integumentary Integumentary: Present other (BOTh LE purple / blue and cool to touch. Acute on chronic. Concerning for progressive DVT. SKin ulcer stage 2 medial mid leg and onycomycosis of toe nails both feet and scabs over toes of right foot.) Neurologic Neurologic: Present other (AAO x 3 Non focal neurological exam. Moves all 4 extremitites. Detailed exam NOT done.) Musculoskeletal Musculoskeletal: Present other (Resting in bed. Has NOT ambulated for some time) Psychiatric Psychiatric: Present oriented to time, oriented to person, oriented to place, speech is normal, memory intact and other (Retired psychologist) Additional Findings Additional exam: Patient is s/p Vascular bypass for revascularization of RIGHT leg 2 months ago. Vein bypass was used, per patient. 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 Progressive thromboembolism VS Hypercoagulable State Results Labs Result diagrams: 06/06/20 07:10 06/06/20 07:10 Labs: Abnormal lab results 06/06/20 06/06/20 06/06/20 Range/Units 07:10 07:10 07:56 RBC 3.96 L (4.50-5.90) M/mcL Hgb 10.3 L (13.5-16.5) g/dL Hct 34.2 L (41.0-55.0) % MCHC 30.1 L (31.0-36.0) g/dL RDW 17.7 H (11.5-14.5) % MPV 10.9 H (7.4-10.4) fL Lymph # (Auto) 1.31 L (1.50-4.80) K/mcL PT 38.5 H (11.9-14.5) sec INR 3.7 H (0.9-1.1) BUN 24 H (8-23) mg/dL Glucose 107 H (70-105) mg/dL Uric Acid 9.5 H (2.5-8.0) mg/dL Total Bilirubin 1.1 H (0.1-1.0) mg/dL Direct Bilirubin 0.6 H (<0.3) mg/dL AST 277 H (<40) U/L ALT 286 H (<40) U/L Alkaline Phosphatase 145 H (39-117) U/L Lactate Dehydrogenase 546 H (135-225) U/L Globulin 3.9 H (2.2-3.7) gm/dL Albumin/Globulin Ratio 0.9 L (1.0-2.3) Diabetes panel 06/06/20 Range/Units 07:10 Sodium 133 (133-145) mmol/L Potassium 4.1 (3.3-5.1) mmol/L Chloride 97 (96-108) mmol/L Carbon Dioxide 27 (22-30) mmol/L BUN 24 H (8-23) mg/dL Creatinine 1.2 (0.7-1.2) mg/dL Glucose 107 H (70-105) mg/dL Calcium 8.6 (8.6-10.4) mg/dL AST 277 H (<40) U/L ALT 286 H (<40) U/L Alkaline Phosphatase 145 H (39-117) U/L Total Protein 7.3 (5.9-8.4) gm/dL Albumin 3.4 (3.2-5.2) gm/dL Triglycerides 53 (<150) mg/dL Calcium panel 06/06/20 Range/Units 07:10 Calcium 8.6 (8.6-10.4) mg/dL Phosphorus 3.8 (2.5-4.5) mg/dL Albumin 3.4 (3.2-5.2) gm/dL Pituitary panel 06/06/20 Range/Units 07:10 Sodium 133 (133-145) mmol/L Potassium 4.1 (3.3-5.1) mmol/L Chloride 97 (96-108) mmol/L Carbon Dioxide 27 (22-30) mmol/L BUN 24 H (8-23) mg/dL Creatinine 1.2 (0.7-1.2) mg/dL Glucose 107 H (70-105) mg/dL Calcium 8.6 (8.6-10.4) mg/dL Adrenal panel 06/06/20 Range/Units 07:10 Sodium 133 (133-145) mmol/L Potassium 4.1 (3.3-5.1) mmol/L Chloride 97 (96-108) mmol/L Carbon Dioxide 27 (22-30) mmol/L BUN 24 H (8-23) mg/dL Creatinine 1.2 (0.7-1.2) mg/dL Glucose 107 H (70-105) mg/dL Calcium 8.6 (8.6-10.4) mg/dL Total Bilirubin 1.1 H (0.1-1.0) mg/dL AST 277 H (<40) U/L ALT 286 H (<40) U/L Alkaline Phosphatase 145 H (39-117) U/L Total Protein 7.3 (5.9-8.4) gm/dL Albumin 3.4 (3.2-5.2) gm/dL All other labs normal. 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 His skin wounds of leg, foot and toes need local wound care as discussed at bedside with Dr. Patel and Raj RN Plan: Recommend consider transferring to Higher Level of care Facility. ( [facility] / IR or Vascular Surgery availability ) Will follow patient from wound care point of view, while he is in hospital. Time Spent With Patient Time: Total time spent is greater than 50% in coordination of care (as documented) at patient's floor/unit and/or counseling patient: Total time spent with greater than 50% in coordination of care (as documented) at patient's floor/unit and/or counseling patient:: Greater than 35 minutes
--- NOTE | 2020-06-06 14:26 | Internal Med Progress Note ---
SUBJECTIVE Subjective Patient information: Note initiated : 06/06/20 at 2:16 pm Service Date, if different from initiated Date: [] Patient: Pernell Granda 65 y/o M admitted on 06/04/20 for Shortness of breath. Chief Complaint: [Shortness of breath] Overnight: Patient is no 4-8L/min of supplemental oxygen. Afebrile. Subjective: Mild SOB. Denies chest pain or palpitation. c/o mild swelling and pa in of bilateral lower extremities. Constitutional Vitals: Vital Signs Temp Pulse Resp BP Pulse Ox 36.4 C 93 H 24 H 139/88 93 06/06/20 12:02 06/04/20 21:44 06/06/20 08:11 06/06/20 10:01 06/06/20 12:02 Period Temp Pulse Resp BP Sys/Sebastian Pulse Ox Last 24 Hr 36.3 C-37.0 C 20-33 79-161/57-124 82-98 Intake and Output 06/06/20 06/06/20 06/06/20 05:59 13:59 21:59 Intake Total 60 200 Output Total 576 50 Balance -516 150 Intake & Output: Intake & Output 06/06/20 06/06/20 06/06/20 05:59 13:59 21:59 Intake Total 60 200 Output Total 576 50 Balance -516 150 Intake: Oral 60 200 Output: Void Amount 575 50 # of times incontinent of urine 1 Other: Meal Breakfast Percent of Meal Consumed 100% Urine Appearance Clear Clear Urine Color Dark Yellow Bright Yellow Urine Odor Normal General appearance: cooperative and no acute distress Head Head exam: Present atraumatic and normocephalic Eye Eye exam: Present EOMI and PERRL ENT ENT exam: Present mucous membranes moist, normal exam and normal external ear exam Neck Neck exam: Present normal inspection; Absent lymphadenopathy, tenderness and thyromegaly Respiratory Respiratory exam: Absent accessory muscle use, respiratory distress and wheezes Cardiovascular Cardiovascular exam: Present irregular rhythm; Absent JVD Additional comments: Irregularly irregular cardiac rhythm 1+ pitting edema bilateral lower extremities GI/Abdominal GI/Abdominal exam: Present normal bowel sounds and soft; Absent organomegaly and tenderness Rectal Rectal exam: Present deferred Extremities Exam Extremities exam: Present full ROM, normal capillary refill and normal inspection; Absent tenderness Neurological Exam Neurological exam: Present alert, CN II-XII intact and oriented X3; Absent motor sensory deficit Psychiatric Psychiatric exam: Present normal affect and normal mood; Absent anxious and dep ressed Skin Skin exam: Present dry and erythema; Absent intact Additional comments: Erythema, swelling, with intact blisters and venous stasis ulcers in bilateral lower extremities up to mid-thigh. OBJ DATA Labs CBC & Chem 7: 06/06/20 07:10 06/06/20 07:10 Labs: Abnormal Lab Results 06/06/20 06/06/20 06/06/20 07:56 07:10 07:10 RBC 3.96 L Hgb 10.3 L Hct 34.2 L MCHC 30.1 L RDW 17.7 H MPV 10.9 H Lymph # (Auto) 1.31 L PT 38.5 H INR 3.7 H VBG Lactic Acid Sodium BUN 24 H Glucose 107 H Uric Acid 9.5 H Total Bilirubin 1.1 H Direct Bilirubin 0.6 H AST 277 H ALT 286 H Alkaline Phosphatase 145 H Lactate Dehydrogenase 546 H Troponin T NT-Pro-B Natriuret Pep Globulin 3.9 H Albumin/Globulin Ratio 0.9 L Procalcitonin 06/05/20 06/05/20 06/04/20 05:21 05:21 11:48 RBC 3.96 L Hgb 10.3 L Hct 33.2 L MCHC RDW 17.6 H MPV 10.8 H Lymph # (Auto) 1.17 L PT INR VBG Lactic Acid Sodium 132 L BUN Glucose 117 H Uric Acid 8.3 H Total Bilirubin 1.2 H Direct Bilirubin 0.7 H AST 127 H ALT 165 H Alkaline Phosphatase 141 H Lactate Dehydrogenase 336 H Troponin T NT-Pro-B Natriuret Pep Globulin Albumin/Globulin Ratio 0.9 L Procalcitonin 0.14 H 06/04/20 06/04/20 06/04/20 11:48 11:48 11:48 RBC Hgb Hct MCHC RDW MPV Lymph # (Auto) PT 51.7 H INR 5.4 H VBG Lactic Acid 3.8 H Sodium BUN Glucose Uric Acid Total Bilirubin Direct Bilirubin AST ALT Alkaline Phosphatase Lactate Dehydrogenase Troponin T 0.03 H NT-Pro-B Natriuret Pep Globulin Albumin/Globulin Ratio Procalcitonin 06/04/20 06/04/20 11:48 11:48 RBC 4.02 L Hgb 10.6 L Hct 34.4 L MCHC 30.8 L RDW 17.6 H MPV 10.6 H Lymph # (Auto) 1.02 L PT INR VBG Lactic Acid Sodium BUN Glucose 120 H Uric Acid Total Bilirubin 1.3 H Direct Bilirubin AST 72 H ALT 125 H Alkaline Phosphatase 157 H Lactate Dehydrogenase Troponin T NT-Pro-B Natriuret Pep 60175.0 H Globulin 3.9 H Albumin/Globulin Ratio 0.9 L Procalcitonin Meds: Medications Acetaminophen (Acetaminophen 325 Mg Tablet) 650 mg PO Q4-6HP PRN; Protocol PRN Reason: Per Pain Protocol/Fever > 101 Last Admin: 06/05/20 11:54 Dose: 650 mg Documented by: Albuterol/Ipratropium (Ipratropium/Albuterol 3 Ml Ampul.Neb) 3 ml NEB Q4HP PRN PRN Reason: Shortness Of Breath Bisacodyl (Bisacodyl 10 Mg Supp.Rect) 10 mg UT Q2-3DAYS PRN PRN Reason: Constipation Diltiazem HCl (Diltiazem 30 Mg Tablet) 60 mg PO Q6 [facility] Last Admin: 06/06/20 12:37 Dose: 60 mg Documented by: Docusate Sodium (Docusate Sodium 100 Mg Capsule) 100 mg PO BID [facility] Last Admin: 06/06/20 08:04 Dose: 100 mg Documented by: Furosemide (Furosemide 40 Mg/4 Ml Vial) 20 mg IV Q8 [facility] Last Admin: 06/06/20 05:32 Dose: 20 mg Documented by: Gabapentin (Gabapentin 300 Mg Capsule) 300 mg PO BID [facility] Last Admin: 06/06/20 08:04 Dose: 300 mg Documented by: Diltiazem HCl 125 mg/ Dextrose 125 mls @ 5 mls/hr IV Q12H [facility]; Protocol Last Admin: 06/06/20 09:36 Dose: Not Given Documented by: Potassium Chloride 40 meq/ (Dextrose) 520 mls @ 130 mls/hr IV UD PRN PRN Reason: K+ = or < 3.5 Acetaminophen (Ofirmev) 650 mg in 65 mls @ 130 mls/hr IV Q6HP PRN; Protocol PRN Reason: Per Pain Protocol/Fever > 101 Magnesium Sulfate (Magnesium Sulfate) 2 gm in 50 mls @ 50 mls/hr IV UD PRN PRN Reason: MG = or < 1.7 Iron Carb/Multivit/Shovel Log Loader Operator/Folic Acid (Multivit,Ther Iron,Ca,Fa & Min 1 Tablet) 1 tab PO DAILY [facility] Last Admin: 06/06/20 08:04 Dose: 1 tab Documented by: Lorazepam (Lorazepam 1 Mg Tablet) 1 mg PO Q6HP PRN PRN Reason: ANXIETY/SEDATION Last Admin: 06/05/20 23:21 Dose: 1 mg Documented by: Melatonin (Melatonin 3 Mg Tablet) 3 mg PO HSP PRN PRN Reason: Insomnia Metoprolol Succinate (Metoprolol Succinate 25 Mg Tab.Xl.24h) 25 mg PO DAILY [facility] Last Admin: 06/06/20 08:04 Dose: 25 mg Documented by: Metoprolol Tartrate (Metoprolol Tartrate 5 Mg/5 Ml Vial) 5 mg IV Q5M PRN PRN Reason: Heart Rate > 140 bpm Ondansetron HCl (Ondansetron 4 Mg Odt Tablet) 4 mg SL Q4-6HP PRN; Protocol PRN Reason: Nausea And Vomiting Last Admin: 06/05/20 20:17 Dose: 4 mg Documented by: Ondansetron HCl (Ondansetron 4 Mg/2 Ml Vial) 4 mg IV Q4-6HP PRN; Protocol PRN Reason: Nausea And Vomiting Polyethylene Glycol (Polyethylene Glycol 3350 17 Gm Packet) 17 gm PO DAILYP PRN PRN Reason: Constipation Potassium/Phosphorus/Sodium (Neutra Phos 1 Packet) 2 packet PO DAILYP PRN PRN Reason: PHOS <2.5 Senna/Docusate Sodium (Sennosides/Docusate Sodium 1 Tab Tablet) 1 tab PO HS [facility] Last Admin: 06/05/20 20:32 Dose: Not Given Documented by: Sodium Chloride (0.9 % Sodium Chloride 10 Ml Syringe) 10 ml IV Q8 [facility] Last Admin: 06/06/20 13:37 Dose: 10 ml Documented by: Thiamine HCl (Thiamine 100 Mg Tablet) 100 mg PO DAILY [facility] Last Admin: 06/06/20 08:04 Dose: 100 mg Documented by: Warfarin Sodium (Warfarin Per Pharmacy) 1 order PO DAILY@1400 [facility] Last Admin: 06/06/20 13:37 Dose: Not Given Documented by: A/P Assessment and plan (1) Venous stasis ulcer: Status: Acute (2) CHF exacerbation: Status: Acute (3) Atrial fibrillation with RVR: Status: Acute (4) History of DVT (deep vein thrombosis): Status: Chronic (5) Anemia, normocytic normochromic: Status: Acute Narrative A/P Narrative: 1. CHF exacerbation: Stays in inpatient PCU/med surg telemetry 2D echocardiogram, results pending 2L/day fluid restriction Daily weigh Intake and output measurement, aim for negative fluid balance Lasix 40mg IV q8hr, consider switching to PO regimen tomorrow Metoprolol Succinate 25mg PO daily Additional therapy ( JAZ-i/ARB/Aldactone) depending on echocardiogram results 2. Atrial fibrillation RVR: Metoprolol Succinate 25mg PO daily Transition to PO Diltiazem from IV drip: Diltiazem 60mg PO QID. By tomorrow, will transition to ER form such as Diltiazem ER 240mg PO daily Daily INR, goal 2-3 Coumadin, pharmacy help dosing 3. Bilateral lower extremities ulcers and blisters, likely venous stasis: Consult wound care Dr. Willams, recs. appreciated Bilateral lower extremities Venous Doppler US to rule out DVT Spoke with Dr. Elias TEJEDA, recs. only if DVT above poppiteal level, would consider transferring patient for IVC filter placement Wound care as per Dr. Willams instruction 4. Neuropathy: Continue Gabapentin 5. Degenerative arthritis: Continue home regimen of Tramadol 6. Anemia, normocytic normochromic: cbc w/ auto diff daily, transfuse pRBC if Hemoglobin <7.0, active bleeding, or i f patient becomes symptomatic Time Spent With Patient Time: Total time spent is greater than 50% in coordination of care (as d ocumented) at patient's floor/unit and/or counseling patient: QUALITY VTE Deep Vein Thrombosis/Pulmonary Embolism Present on Admission: No
--- NOTE | 2020-06-06 16:44 | Ultrasound Report ---
History: Bilateral leg pain and swelling, shortness of breath, suspect deep venous thrombosis, recent surgery FINDINGS: The deep veins and saphenous vein from the groin through the popliteal fossa are normal bilaterally without evidence of thrombosis. Patient was tender in the right groin following recent surgery. There is no evidence of hematoma or pseudoaneurysm at that level. There are bandages wrapped around the left calf from below the knee to the ankle and there is also bandaging around the mid and distal portion of the right calf. The bandaged segments of both calves cannot be evaluated. Above the bandages, no thrombus is seen in either calf. IMPRESSION: Limited exam of the calves bilaterally and no evidence of deep venous thrombosis in the thighs or popliteal fossa Interpreted and Authenticated by: Pernell Lancaster 06/06/20
[2020-06-06] MEDS: SENNOSIDES/DOCUSATE SODIUM 1 TAB TABLET PO SCH (20:34)
[2020-06-06] MEDS: LORazepam 1 MG TABLET PO PRN (20:36)
[2020-06-07] MEDS: FUROSEMIDE 40 MG/4 ML VIAL IV SCH ×2 (05:29→14:30)
[2020-06-07] MEDS: DILTIAZEM 30 MG TABLET PO SCH ×3 (05:29→17:26)
[2020-06-07] MEDS: 0.9 % SODIUM CHLORIDE 10 ML SYRINGE IV SCH ×3 (05:29→20:34)
[2020-06-07 07:22] LABS: Basophils # (Auto) 0.05 K/mcL (0.00-0.20); Basophils % (Auto) 0.6 % (0.0-2.0); Eosinophils # (Auto) 0.23 K/mcL (0.00-0.70); Eosinophils % (Auto) 2.9 % (0.0-7.0); Hematocrit 33.6 % (41.0-55.0); Lymphocytes # (Auto) 1.23 K/mcL (1.50-4.80); Lymphocytes % (Auto) 15.6 % (15.0-49.0); Mean Cell Volume 87.3 fL (80.0-100.0); Mean Corpuscular HGB Conc 29.8 g/dL (31.0-36.0); Mean Platelet Volume 10.8 fL (7.4-10.4); Monocytes # (Auto) 0.74 K/mcL (0.10-0.90); Monocytes % (Auto) 9.4 % (1.0-12.0); Neutrophils % (Auto) 71.5 % (38.0-78.0); Platelet Count 380 K/mcL (140-440); RBC 3.85 M/mcL (4.50-5.90); Red Cell Distribution Width 17.5 % (11.5-14.5); WBC 7.9 K/mcL (4.5-11.0)
[2020-06-07 07:52] LABS: ALT/SGPT 255 U/L (<40); AST/SGOT 173 U/L (<40); Albumin 3.5 gm/dL (3.2-5.2); Albumin/Globulin Ratio 0.9 (1.0-2.3); Alkaline Phosphatase 152 U/L (39-117); Bilirubin,Direct 0.5 mg/dL (<0.3); Blood Urea Nitrogen 25 mg/dL (8-23); Calcium 8.6 mg/dL (8.6-10.4); Carbon Dioxide 29 mmol/L (22-30); Chloride 91 mmol/L (96-108); Glomerular Filtration Rate 52; Glucose 164 mg/dL (70-105); Lactate Dehydrogenase 360 U/L (135-225); Triglycerides 69 mg/dL (<150); Uric Acid 9.3 mg/dL (2.5-8.0)
[2020-06-07 08:08] LABS: Prothrombin Time 32.6 sec (11.9-14.5)
[2020-06-07] MEDS: METOPROLOL SUCCINATE 25 MG TAB.XL.24H PO SCH (09:09)
[2020-06-07] MEDS: GABAPENTIN 300 MG CAPSULE PO SCH ×2 (09:09→20:33)
[2020-06-07] MEDS: DOCUSATE SODIUM 100 MG CAPSULE PO SCH ×2 (09:09→20:32)
[2020-06-07] MEDS: THIAMINE 100 MG TABLET PO SCH (09:09)
[2020-06-07] MEDS: MULTIVIT,THER IRON,CA,FA & MIN 1 TABLET PO SCH (09:09)
[2020-06-07] MEDS ORDERED: WARFARIN 5 MG TABLET PO ONE (14:00)
[2020-06-07] MEDS: IPRATROPIUM/ALBUTEROL 3 ML AMPUL.NEB NEB PRN (15:30)
[2020-06-07] MEDS: LORazepam 1 MG TABLET PO PRN ×2 (16:02→22:09)
[2020-06-07] MEDS ORDERED: POTASSIUM CHLORIDE 20 MEQ TABLET PO ONE (18:26)
--- NOTE | 2020-06-07 18:26 | Internal Med Progress Note ---
SUBJECTIVE Subjective Patient information: Note initiated : 06/07/20 at 6:19 pm Service Date, if different from initiated Date: [] Patient: Pernell Granda 65 y/o M admitted on 06/04/20 for Shortness of breath. Chief Complaint: [CHF exacerbation] Overnight: Been on 4-8L/min oxygen. Doppler venous US bilateral legs negative for VTE. Subjective: c/o SOB. c/o bilateral leg pain, moderate. Denies fever or chills. Denies chest pain or palpitation. Constitutional Vitals: Vital Signs Temp Pulse Resp BP Pulse Ox 36.5 C 93 H 22 129/72 94 06/07/20 16:06 06/07/20 15:38 06/07/20 15:38 06/07/20 16:06 06/07/20 16:24 Period Temp Pulse Resp BP Sys/Sebastian Pulse Ox Last 24 Hr 36.2 C-36.7 C 93 12-24 124-152/66-94 84-96 Intake and Output 06/07/20 06/07/20 06/07/20 05:59 13:59 21:59 Intake Total 1335 358 440 Output Total 875 850 750 Balance 460 -492 -310 Intake & Output: Intake & Output 06/07/20 06/07/20 06/07/20 05:59 13:59 21:59 Intake Total 1335 358 440 Output Total 875 850 750 Balance 460 -492 -310 Intake: Oral 1335 358 440 Output: Void Amount 875 850 750 Other: Meal Nourishment/Supplement Lunch Dinner Percent of Meal Consumed 100% 100% 100% Feeding Ability Independent Nourishment/Supplement name luis felipe blunt x4 Urine Appearance Clear Clear Clear Urine Color Dark Yellow Bright Yellow Bright Yellow General appearance: cooperative and no acute distress Head Head exam: Present atraumatic and normocephalic Eye Eye exam: Present EOMI and PERRL ENT ENT exam: Present mucous membranes moist, normal exam and normal external ear exam Additional comments: Nasal cannula in place. Neck Neck exam: Present normal inspection; Absent lymphadenopathy, tenderness and thyromegaly Respiratory Respiratory exam: Absent accessory muscle use, respiratory distress and wheezes Cardiovascular Cardiovascular exam: Present irregular rhythm; Absent JVD GI/Abdominal GI/Abdominal exam: Present normal bowel sounds and soft; Absent organomegaly and tenderness Rectal Rectal exam: Present deferred Extremities Exam Extremities exam: Present full ROM, normal capillary refill, normal inspection and pedal edema; Absent tenderness Neurological Exam Neurological exam: Present alert, CN II-XII intact and oriented X3; Absent motor sensory deficit Psychiatric Psychiatric exam: Present normal affect and normal mood; Absent anxious and depressed Skin Skin exam: Present dry and intact Additional comments: Intact blisters, venous stasis ulcers, erythema, swelling of bilateral lower extremities, with wound dressings in place. OBJ DATA Labs CBC & Chem 7: 06/07/20 05:10 06/07/20 05:10 Labs: Abnormal Lab Results 06/07/20 06/07/20 06/07/20 05:10 05:10 05:10 RBC 3.85 L Hgb 10.0 L Hct 33.6 L MCHC 29.8 L RDW 17.5 H MPV 10.8 H Lymph # (Auto) 1.23 L PT 32.6 H INR 3.0 H Sodium 128 L Chloride 91 L BUN 25 H Creatinine 1.4 H Glucose 164 H Uric Acid 9.3 H Total Bilirubin Direct Bilirubin 0.5 H GGT 65 H AST 173 H ALT 255 H Alkaline Phosphatase 152 H Lactate Dehydrogenase 360 H Globulin 4.0 H Albumin/Globulin Ratio 0.9 L 06/06/20 06/06/20 06/06/20 07:56 07:10 07:10 RBC 3.96 L Hgb 10.3 L Hct 34.2 L MCHC 30.1 L RDW 17.7 H MPV 10.9 H Lymph # (Auto) 1.31 L PT 38.5 H INR 3.7 H Sodium Chloride BUN 24 H Creatinine Glucose 107 H Uric Acid 9.5 H Total Bilirubin 1.1 H Direct Bilirubin 0.6 H GGT AST 277 H ALT 286 H Alkaline Phosphatase 145 H Lactate Dehydrogenase 546 H Globulin 3.9 H Albumin/Globulin Ratio 0.9 L 06/05/20 06/05/20 05:21 05:21 RBC 3.96 L Hgb 10.3 L Hct 33.2 L MCHC RDW 17.6 H MPV 10.8 H Lymph # (Auto) 1.17 L PT INR Sodium 132 L Chloride BUN Creatinine Glucose 117 H Uric Acid 8.3 H Total Bilirubin 1.2 H Direct Bilirubin 0.7 H GGT AST 127 H ALT 165 H Alkaline Phosphatase 141 H Lactate Dehydrogenase 336 H Globulin Albumin/Globulin Ratio 0.9 L Meds: Medications Acetaminophen (Acetaminophen 325 Mg Tablet) 650 mg PO Q4-6HP PRN; Protocol PRN Reason: Per Pain Protocol/Fever > 101 Last Admin: 06/05/20 11:54 Dose: 650 mg Documented by: Albuterol/Ipratropium (Ipratropium/Albuterol 3 Ml Ampul.Neb) 3 ml NEB Q4HP PRN PRN Reason: Shortness Of Breath Last Admin: 06/07/20 15:30 Dose: 3 ml Documented by: Bisacodyl (Bisacodyl 10 Mg Supp.Rect) 10 mg TN Q2-3DAYS PRN PRN Reason: Constipation Diltiazem HCl (Diltiazem 240 Mg Cap.Xl.24h) 240 mg PO [facility] Docusate Sodium (Docusate Sodium 100 Mg Capsule) 100 mg PO BID [facility] Last Admin: 06/07/20 09:09 Dose: 100 mg Documented by: Gabapentin (Gabapentin 300 Mg Capsule) 300 mg PO BID [facility] Last Admin: 06/07/20 09:09 Dose: 300 mg Documented by: Potassium Chloride 40 meq/ (Dextrose) 520 mls @ 130 mls/hr IV UD PRN PRN Reason: K+ = or < 3.5 Acetaminophen (Ofirmev) 650 mg in 65 mls @ 130 mls/hr IV Q6HP PRN; Protocol PRN Reason: Per Pain Protocol/Fever > 101 Magnesium Sulfate (Magnesium Sulfate) 2 gm in 50 mls @ 50 mls/hr IV UD PRN PRN Reason: MG = or < 1.7 Iron Carb/Multivit/[place]/Folic Acid (Multivit,Ther Iron,Ca,Fa & Min 1 Tablet) 1 tab PO DAILY [facility] Last Admin: 06/07/20 09:09 Dose: 1 tab Documented by: Lorazepam (Lorazepam 1 Mg Tablet) 1 mg PO Q6HP PRN PRN Reason: ANXIETY/SEDATION Last Admin: 06/07/20 16:02 Dose: 1 mg Documented by: Melatonin (Melatonin 3 Mg Tablet) 3 mg PO HSP PRN PRN Reason: Insomnia Metoprolol Succinate (Metoprolol Succinate 25 Mg Tab.Xl.24h) 25 mg PO DAILY [facility] Last Admin: 06/07/20 09:09 Dose: 25 mg Documented by: Metoprolol Tartrate (Metoprolol Tartrate 5 Mg/5 Ml Vial) 5 mg IV Q5M PRN PRN Reason: Heart Rate > 140 bpm Ondansetron HCl (Ondansetron 4 Mg Odt Tablet) 4 mg SL Q4-6HP PRN; Protocol PRN Reason: Nausea And Vomiting Last Admin: 06/05/20 20:17 Dose: 4 mg Documented by: Ondansetron HCl (Ondansetron 4 Mg/2 Ml Vial) 4 mg IV Q4-6HP PRN; Protocol PRN Reason: Nausea And Vomiting Polyethylene Glycol (Polyethylene Glycol 3350 17 Gm Packet) 17 gm PO DAILYP PRN PRN Reason: Constipation Potassium/Phosphorus/Sodium (Neutra Phos 1 Packet) 2 packet PO DAILYP PRN PRN Reason: PHOS <2.5 Senna/Docusate Sodium (Sennosides/Docusate Sodium 1 Tab Tablet) 1 tab PO HS [facility] Last Admin: 06/06/20 20:34 Dose: Not Given Documented by: Sodium Chloride (0.9 % Sodium Chloride 10 Ml Syringe) 10 ml IV Q8 [facility] Last Admin: 06/07/20 14:29 Dose: 10 ml Documented by: Thiamine HCl (Thiamine 100 Mg Tablet) 100 mg PO DAILY [facility] Last Admin: 06/07/20 09:09 Dose: 100 mg Documented by: Warfarin Sodium (Warfarin Per Pharmacy) 1 order PO UD [facility] A/P Assessment and plan (1) Venous stasis ulcer: Status: Acute (2) CHF exacerbation: Status: Acute (3) Atrial fibrillation with RVR: Status: Acute (4) History of DVT (deep vein thrombosis): Status: Chronic (5) Anemia, normocytic normochromic: Status: Acute (6) Hypokalemia: Status: Acute (7) Stage 1 acute kidney injury: Status: Acute Narrative A/P Narrative: 1. CHF exacerbation: Stays in inpatient PCU/med surg telemetry 2D echocardiogram, results pending 2L/day fluid restriction Daily weigh Intake and output measurement, aim for negative fluid balance Lasix 40mg IV-->PO q8hr Metoprolol Succinate 25mg PO daily Additional therapy ( JAZ-i/ARB/Aldactone) depending on echocardiogram results 2. Atrial fibrillation RVR: Metoprolol Succinate 25mg PO daily Switch to Diltiazem ER 240mg PO daily Daily INR, goal 2-3 Coumadin, pharmacy help dosing 3. Bilateral lower extremities ulcers and blisters, likely venous stasis: Consult wound care Dr. Willams, recs. appreciated Bilateral lower extremities Venous Doppler US to rule out DVT --> no DVT Spoke with Dr. Elias TEJEDA, recs. only if DVT above poppiteal level, would consider transferring patient for IVC filter placement Wound care as per Dr. Willams instruction 4. Neuropathy: Continue Gabapentin 5. Degenerative arthritis: Continue home regimen of Tramadol 6. Anemia, normocytic normochromic: cbc w/ auto diff daily, transfuse pRBC if Hemoglobin <7.0, active bleeding, or if patient becomes symptomatic 7. Hypokalemia: Secondary to aggressive diuretics therapy as part of the treatment of CHF KCl 40mEq PO once now Avoid potassium replacement protocol given [place] 8. stage 1 acute kidney injury: Secondary to aggressive diuretics therapy as part of the treatment of CHF Saline lock and 2L fluid restriction Lasix switch from IV to PO (less potency) Repeat CMP in the AM to trend kidney functions Avoid nephrotoxic agents Time Spent With Patient Time: Total time spent is greater than 50% in coordination of care (as documented) at patient's floor/unit and/or counseling patient: Total time spent with greater than 50% in coordination of care (as documented) at patient's floor/unit and/or counseling patient:: 15 - 24 minutes QUALITY VTE Deep Vein Thrombosis/Pulmonary Embolism Present on Admission: No
[2020-06-07] MEDS: FUROSEMIDE 40 MG TABLET PO SCH (20:33)
[2020-06-07] MEDS: DILTIAZEM 240 MG CAP.XL.24H PO SCH (20:33)
[2020-06-07] MEDS: SENNOSIDES/DOCUSATE SODIUM 1 TAB TABLET PO SCH (20:33)
[2020-06-07] MEDS ORDERED: FUROSEMIDE 20 MG/2 ML VIAL IV SCH (22:00)
[2020-06-08] MEDS: 0.9 % SODIUM CHLORIDE 10 ML SYRINGE IV SCH ×3 (05:37→23:32)
[2020-06-08 07:54] LABS: Basophils # (Auto) 0.06 K/mcL (0.00-0.20); Basophils % (Auto) 0.7 % (0.0-2.0); Eosinophils # (Auto) 0.26 K/mcL (0.00-0.70); Eosinophils % (Auto) 2.9 % (0.0-7.0); Hematocrit 33.9 % (41.0-55.0); Hemoglobin 10.2 g/dL (13.5-16.5); Lymphocytes # (Auto) 1.15 K/mcL (1.50-4.80); Lymphocytes % (Auto) 12.8 % (15.0-49.0); Mean Cell Volume 85.4 fL (80.0-100.0); Mean Corpuscular HGB Conc 30.1 g/dL (31.0-36.0); Mean Platelet Volume 10.5 fL (7.4-10.4); Monocytes # (Auto) 0.87 K/mcL (0.10-0.90); Monocytes % (Auto) 9.7 % (1.0-12.0); Neutrophils % (Auto) 73.9 % (38.0-78.0); Platelet Count 365 K/mcL (140-440); RBC 3.97 M/mcL (4.50-5.90); Red Cell Distribution Width 17.7 % (11.5-14.5)
[2020-06-08 08:12] LABS: INR 2.2 (0.9-1.1); Prothrombin Time 25.6 sec (11.9-14.5)
[2020-06-08 08:23] LABS: ALT/SGPT 186 U/L (<40); AST/SGOT 95 U/L (<40); Albumin 3.5 gm/dL (3.2-5.2); Albumin/Globulin Ratio 0.9 (1.0-2.3); Alkaline Phosphatase 156 U/L (39-117); Bilirubin,Direct 0.5 mg/dL (<0.3); Blood Urea Nitrogen 24 mg/dL (8-23); Calcium 8.5 mg/dL (8.6-10.4); Carbon Dioxide 33 mmol/L (22-30); Chloride 94 mmol/L (96-108); Globulin 4.1 gm/dL (2.2-3.7); Glomerular Filtration Rate 77; Glucose 136 mg/dL (70-105); Lactate Dehydrogenase 234 U/L (135-225); Phosphorous 2.7 mg/dL (2.5-4.5); Triglycerides 67 mg/dL (<150); Uric Acid 8.9 mg/dL (2.5-8.0)
[2020-06-08] MEDS: THIAMINE 100 MG TABLET PO SCH (09:56)
[2020-06-08] MEDS: DOCUSATE SODIUM 100 MG CAPSULE PO SCH ×2 (09:56→23:31)
[2020-06-08] MEDS: METOPROLOL SUCCINATE 25 MG TAB.XL.24H PO SCH (09:56)
[2020-06-08] MEDS: MULTIVIT,THER IRON,CA,FA & MIN 1 TABLET PO SCH (09:57)
[2020-06-08] MEDS: GABAPENTIN 300 MG CAPSULE PO SCH ×2 (09:57→23:31)
[2020-06-08] MEDS: FUROSEMIDE 40 MG TABLET PO SCH ×3 (09:57→23:31)
[2020-06-08] MEDS ORDERED: WARFARIN 7.5 MG TABLET PO ONE (14:00)
[2020-06-08] MEDS ORDERED: hydrALAZINE 20 MG/ML VIAL IV PRN (16:14)
--- NOTE | 2020-06-08 16:19 | Internal Med Progress Note ---
SUBJECTIVE Subjective Patient information: Note initiated : 06/08/20 at 4:15 pm Service Date, if different from initiated Date: [] Patient: Pernell Granda 65 y/o M admitted on 06/04/20 for Shortness of breath. Chief Complaint: [CHF exacerbation, atrial fibrillation, and bilateral lower extremities venous stasis ulcers] Overnight: up to 8L/min supplemental oxygen requirement as late as this morning. afebrile. Subjective: c/o mild SOB. Denies chest pain or palpitation. Denies wheezing. Denies cough or sputum production. Mild sharp pain of bilateral lower legs and feet. Constitutional Vitals: Vital Signs Temp Pulse Resp BP Pulse Ox 36.3 C 93 H 16 141/88 91 06/08/20 12:01 06/07/20 15:38 06/08/20 12:01 06/08/20 12:01 06/08/20 12:01 Period Temp Pulse Resp BP Sys/Sebastian Pulse Ox Last 24 Hr 36.3 C-36.5 C 14-24 125-149/61-90 87-95 Intake and Output 06/08/20 06/08/20 06/08/20 05:59 13:59 21:59 Intake Total 480 960 Output Total 302 400 Balance 178 560 Intake & Output: Intake & Output 06/08/20 06/08/20 06/08/20 05:59 13:59 21:59 Intake Total 480 960 Output Total 302 400 Balance 178 560 Intake: Oral 480 960 Output: Void Amount 300 400 # of times incontinent of urine 2 Other: Meal Lunch Percent of Meal Consumed 100% Feeding Ability Independent Urine Appearance Clear Clear Urine Color Dark Yellow Bright Yellow General appearance: cooperative and no acute distress Head Head exam: Present atraumatic and normocephalic Eye Eye exam: Present EOMI and PERRL ENT ENT exam: Present mucous membranes moist, normal exam and normal external ear exam Additional comments: Nasal cannula oxygen in place. Neck Neck exam: Present normal inspection; Absent lymphadenopathy, tenderness and thyromegaly Respiratory Respiratory exam: Absent accessory muscle use, respiratory distress and wheezes Cardiovascular Cardiovascular exam: Present normal rate and rhythm; Absent JVD GI/Abdominal GI/Abdominal exam: Present normal bowel sounds and soft; Absent organomegaly and tenderness Rectal Rectal exam: Present deferred Extremities Exam Extremities exam: Present full ROM, normal capillary refill, normal inspection and pedal edema; Absent tenderness Additional comments: 2+ pitting edema bilateral lower extremities up to knees Neurological Exam Neurological exam: Present alert, CN II-XII intact and oriented X3; Absent motor sensory deficit Psychiatric Psychiatric exam: Present normal affect and normal mood; Absent anxious and depressed Skin Skin exam: Present dry and intact Additional comments: Bilateral ankles and feet covered in wound dressing. Erythema, swelling, warmth to touch, and tenderness to palpation bilateral lower calves. OBJ DATA Labs CBC & Chem 7: 06/08/20 06:09 06/08/20 06:09 Labs: Abnormal Lab Results 06/08/20 06/08/20 06/08/20 06:09 06:09 06:09 RBC 3.97 L Hgb 10.2 L Hct 33.9 L MCH 25.7 L MCHC 30.1 L RDW 17.7 H MPV 10.5 H Lymph % (Auto) 12.8 L Lymph # (Auto) 1.15 L PT 25.6 H INR 2.2 H Sodium 132 L Chloride 94 L Carbon Dioxide 33 H Anion Gap 5.0 L BUN 24 H Creatinine Glucose 136 H Uric Acid 8.9 H Calcium 8.5 L Total Bilirubin Direct Bilirubin 0.5 H GGT 65 H AST 95 H ALT 186 H Alkaline Phosphatase 156 H Lactate Dehydrogenase 234 H Globulin 4.1 H Albumin/Globulin Ratio 0.9 L 06/07/20 06/07/20 06/07/20 05:10 05:10 05:10 RBC 3.85 L Hgb 10.0 L Hct 33.6 L MCH MCHC 29.8 L RDW 17.5 H MPV 10.8 H Lymph % (Auto) Lymph # (Auto) 1.23 L PT 32.6 H INR 3.0 H Sodium 128 L Chloride 91 L Carbon Dioxide Anion Gap BUN 25 H Creatinine 1.4 H Glucose 164 H Uric Acid 9.3 H Calcium Total Bilirubin Direct Bilirubin 0.5 H GGT 65 H AST 173 H ALT 255 H Alkaline Phosphatase 152 H Lactate Dehydrogenase 360 H Globulin 4.0 H Albumin/Globulin Ratio 0.9 L 06/06/20 06/06/20 06/06/20 07:56 07:10 07:10 RBC 3.96 L Hgb 10.3 L Hct 34.2 L MCH MCHC 30.1 L RDW 17.7 H MPV 10.9 H Lymph % (Auto) Lymph # (Auto) 1.31 L PT 38.5 H INR 3.7 H Sodium Chloride Carbon Dioxide Anion Gap BUN 24 H Creatinine Glucose 107 H Uric Acid 9.5 H Calcium Total Bilirubin 1.1 H Direct Bilirubin 0.6 H GGT AST 277 H ALT 286 H Alkaline Phosphatase 145 H Lactate Dehydrogenase 546 H Globulin 3.9 H Albumin/Globulin Ratio 0.9 L Meds: Medications Acetaminophen (Acetaminophen 325 Mg Tablet) 650 mg PO Q4-6HP PRN; Protocol PRN Reason: Per Pain Protocol/Fever > 101 Last Admin: 06/05/20 11:54 Dose: 650 mg Documented by: Albuterol/Ipratropium (Ipratropium/Albuterol 3 Ml Ampul.Neb) 3 ml NEB Q4HP PRN PRN Reason: Shortness Of Breath Last Admin: 06/07/20 15:30 Dose: 3 ml Documented by: Bisacodyl (Bisacodyl 10 Mg Supp.Rect) 10 mg IA Q2-3DAYS PRN PRN Reason: Constipation Diltiazem HCl (Diltiazem 240 Mg Cap.Xl.24h) 240 mg PO [facility] Last Admin: 06/07/20 20:33 Dose: 240 mg Documented by: Docusate Sodium (Docusate Sodium 100 Mg Capsule) 100 mg PO BID [facility] Last Admin: 06/08/20 09:56 Dose: 100 mg Documented by: Furosemide (Furosemide 40 Mg Tablet) 40 mg PO TID [facility] Last Admin: 06/08/20 15:16 Dose: 40 mg Documented by: Gabapentin (Gabapentin 300 Mg Capsule) 300 mg PO BID [facility] Last Admin: 06/08/20 09:57 Dose: 300 mg Documented by: Potassium Chloride 40 meq/ (Dextrose) 520 mls @ 130 mls/hr IV UD PRN PRN Reason: K+ = or < 3.5 Acetaminophen (Ofirmev) 650 mg in 65 mls @ 130 mls/hr IV Q6HP PRN; Protocol PRN Reason: Per Pain Protocol/Fever > 101 Magnesium Sulfate (Magnesium Sulfate) 2 gm in 50 mls @ 50 mls/hr IV UD PRN PRN Reason: MG = or < 1.7 Iron Carb/Multivit/[place]/Folic Acid (Multivit,Ther Iron,Ca,Fa & Min 1 Tablet) 1 tab PO DAILY [facility] Last Admin: 06/08/20 09:57 Dose: 1 tab Documented by: Lisinopril (Lisinopril 10 Mg Tablet) 10 mg PO DAILY [facility] Lorazepam (Lorazepam 1 Mg Tablet) 1 mg PO Q6HP PRN PRN Reason: ANXIETY/SEDATION Last Admin: 06/07/20 22:09 Dose: 1 mg Documented by: Melatonin (Melatonin 3 Mg Tablet) 3 mg PO HSP PRN PRN Reason: Insomnia Metoprolol Succinate (Metoprolol Succinate 25 Mg Tab.Xl.24h) 25 mg PO DAILY [facility] Last Admin: 06/08/20 09:56 Dose: 25 mg Documented by: Metoprolol Tartrate (Metoprolol Tartrate 5 Mg/5 Ml Vial) 5 mg IV Q5M PRN PRN Reason: Heart Rate > 140 bpm Ondansetron HCl (Ondansetron 4 Mg Odt Tablet) 4 mg SL Q4-6HP PRN; Protocol PRN Reason: Nausea And Vomiting Last Admin: 06/05/20 20:17 Dose: 4 mg Documented by: Ondansetron HCl (Ondansetron 4 Mg/2 Ml Vial) 4 mg IV Q4-6HP PRN; Protocol PRN Reason: Nausea And Vomiting Polyethylene Glycol (Polyethylene Glycol 3350 17 Gm Packet) 17 gm PO DAILYP PRN PRN Reason: Constipation Potassium/Phosphorus/Sodium (Neutra Phos 1 Packet) 2 packet PO DAILYP PRN PRN Reason: PHOS <2.5 Senna/Docusate Sodium (Sennosides/Docusate Sodium 1 Tab Tablet) 1 tab PO HS [facility] Last Admin: 06/07/20 20:33 Dose: Not Given Documented by: Sodium Chloride (0.9 % Sodium Chloride 10 Ml Syringe) 10 ml IV Q8 [facility] Last Admin: 06/08/20 15:16 Dose: 10 ml Documented by: Thiamine HCl (Thiamine 100 Mg Tablet) 100 mg PO DAILY [facility] Last Admin: 06/08/20 09:56 Dose: 100 mg Documented by: Warfarin Sodium (Warfarin Per Pharmacy) 1 order PO UD [facility] A/P Assessment and plan (1) Venous stasis ulcer: Status: Acute (2) CHF exacerbation: Status: Acute (3) Atrial fibrillation with RVR: Status: Acute (4) History of DVT (deep vein thrombosis): Status: Chronic (5) Anemia, normocytic normochromic: Status: Acute (6) Hypokalemia: Status: Acute (7) Stage 1 acute kidney injury: Status: Acute Narrative A/P Narrative: 1. CHF exacerbation: Stays in inpatient PCU/med surg telemetry 2D echocardiogram, showing global hypokinesis with LVEF 21%; no diastolic dysfunction 2L/day fluid restriction Daily weigh Intake and output measurement, aim for negative fluid balance Lasix 40mg PO q8hr Metoprolol Succinate 25mg PO daily Lisinopril 10mg PO daily Add Aldactone 50mg PO BID Hydralazine 10mg IV q4-6hr PRN SBP>=180mmHg and/or DBP>=110mmHg 2. Atrial fibrillation RVR: Metoprolol Succinate 25mg PO daily Diltiazem ER 240mg PO daily Daily INR, goal 2-3 Coumadin, pharmacy help dosing 3. Bilateral lower extremities ulcers and blisters, likely venous stasis: Consult wound care Dr. Willams, recs. appreciated Bilateral lower extremities Venous Doppler US to rule out DVT --> no DVT Spoke with Dr. Elias TEJEDA, recs. only if DVT above poppiteal level, would consider transferring patient for IVC filter placement Wound care as per Dr. Willams instruction 4. Neuropathy: Continue Gabapentin 5. Degenerative arthritis: Continue home regimen of Tramadol 6. Anemia, normocytic normochromic: cbc w/ auto diff daily, transfuse pRBC if Hemoglobin <7.0, active bleeding, or if patient becomes symptomatic 7. Hypokalemia: Secondary to aggressive diuretics therapy as part of the treatment of CHF KCl 40mEq PO once now Avoid potassium replacement protocol given acute kidney injury 8. stage 1 acute kidney injury: RESOLVED Secondary to aggressive diuretics therapy as part of the treatment of CHF Saline lock and 2L fluid restriction Lasix switch from IV to PO (less potency) Repeat CMP in the AM to trend kidney functions Avoid nephrotoxic agents Time Spent With Patient Time: Total time spent is greater than 50% in coordination of care (as documented) at patient's floor/unit and/or counseling patient: QUALITY VTE Deep Vein Thrombosis/Pulmonary Embolism Present on Admission: No
--- NOTE | 2020-06-08 17:20 | General Surgery Progress Note ---
SUBJECTIVE Subjective Patient information: Note initiated : 06/08/20 at 5:12 pm Service Date, if different from initiated Date: [] Patient: Pernell Granda 65 y/o M admitted on 06/04/20 for Shortness of breath. Chief Complaint: [] Additional PMFSH (Level 3 Only): Patient seen on morning rounds with Afia ACOSTA In Patient wound care nurse and BELKIS RN caring for this patient. Reviewed Hospitalist 's note. There are NO CHANGES in patient's leg wounds. Local wound care is ongoing, Constitutional Vitals: Vital Signs Temp Pulse Resp BP Pulse Ox 97.3 F 93 H 16 141/88 93 06/08/20 12:01 06/07/20 15:38 06/08/20 12:01 06/08/20 12:01 06/08/20 14:00 Period Temp Pulse Resp BP Sys/Sebastian Pulse Ox Last 24 Hr 97.3 F-97.7 F 14-24 125-149/61-90 87-95 Intake and Output 06/08/20 06/08/20 06/08/20 05:59 13:59 21:59 Intake Total 480 960 Output Total 302 400 Balance 178 560 Intake & Output: Intake & Output 06/08/20 06/08/20 06/08/20 05:59 13:59 21:59 Intake Total 480 960 Output Total 302 400 Balance 178 560 Intake: Oral 480 960 Output: Void Amount 300 400 # of times incontinent of urine 2 Other: Meal Lunch Percent of Meal Consumed 100% Feeding Ability Independent Urine Appearance Clear Clear Urine Color Dark Yellow Bright Yellow Exam: NO changes in wounds, Local wound care is ongoing. Venous Doppler of THIGHS was negative for DVT. Reviewed lab results and notes / from Dr. CHANG and Dr OBRIEN's recommendations. A/P Narrative A/P Narrative: Assessment: No changes in wound care. Plan reviewed and discussed with Dr. CHANG, Hospitalist and Belkis RN Plan: Will see patient intermittently during his hospital stay. Time Spent With Patient Time: Total time spent is greater than 50% in coordination of care (as documented) at patient's floor/unit and/or counseling patient: Total time spent with greater than 50% in coordination of care (as documented) at patient's floor/unit and/or counseling patient:: 15 - 24 minutes
[2020-06-08] MEDS: DILTIAZEM 240 MG CAP.XL.24H PO SCH (23:30)
[2020-06-08] MEDS: SENNOSIDES/DOCUSATE SODIUM 1 TAB TABLET PO SCH (23:32)
[2020-06-09] MEDS: 0.9 % SODIUM CHLORIDE 10 ML SYRINGE IV SCH ×3 (05:28→23:36)
[2020-06-09 07:03] LABS: Basophils # (Auto) 0.05 K/mcL (0.00-0.20); Basophils % (Auto) 0.6 % (0.0-2.0); Eosinophils # (Auto) 0.28 K/mcL (0.00-0.70); Eosinophils % (Auto) 3.3 % (0.0-7.0); Hematocrit 33.1 % (41.0-55.0); Hemoglobin 10.2 g/dL (13.5-16.5); Mean Cell Volume 84.2 fL (80.0-100.0); Mean Corpuscular HGB Conc 30.8 g/dL (31.0-36.0); Mean Platelet Volume 10.8 fL (7.4-10.4); Monocytes # (Auto) 0.64 K/mcL (0.10-0.90); Monocytes % (Auto) 7.5 % (1.0-12.0); Neutrophils % (Auto) 74.6 % (38.0-78.0); Platelet Count 316 K/mcL (140-440); RBC 3.93 M/mcL (4.50-5.90); Red Cell Distribution Width 17.7 % (11.5-14.5); WBC 8.6 K/mcL (4.5-11.0)
[2020-06-09 07:13] LABS: INR 2.3 (0.9-1.1); Prothrombin Time 26.5 sec (11.9-14.5)
[2020-06-09 07:38] LABS: ALT/SGPT 150 U/L (<40); AST/SGOT 70 U/L (<40); Albumin 3.5 gm/dL (3.2-5.2); Albumin/Globulin Ratio 0.9 (1.0-2.3); Alkaline Phosphatase 167 U/L (39-117); Bilirubin,Direct 0.4 mg/dL (<0.3); Blood Urea Nitrogen 18 mg/dL (8-23); Calcium 8.8 mg/dL (8.6-10.4); Carbon Dioxide 32 mmol/L (22-30); Chloride 91 mmol/L (96-108); Globulin 4.1 gm/dL (2.2-3.7); Glomerular Filtration Rate 77; Glucose 98 mg/dL (70-105); Lactate Dehydrogenase 291 U/L (135-225); Phosphorous 2.1 mg/dL (2.5-4.5); Triglycerides 59 mg/dL (<150); Uric Acid 8.4 mg/dL (2.5-8.0)
[2020-06-09] MEDS: IPRATROPIUM/ALBUTEROL 3 ML AMPUL.NEB NEB PRN (07:58)
[2020-06-09] MEDS: METOPROLOL SUCCINATE 25 MG TAB.XL.24H PO SCH (09:32)
[2020-06-09] MEDS: FUROSEMIDE 40 MG TABLET PO SCH ×3 (09:32→21:08)
[2020-06-09] MEDS: MULTIVIT,THER IRON,CA,FA & MIN 1 TABLET PO SCH (09:33)
[2020-06-09] MEDS: LISINOPRIL 10 MG TABLET PO SCH (09:33)
[2020-06-09] MEDS: GABAPENTIN 300 MG CAPSULE PO SCH ×2 (09:33→21:08)
[2020-06-09] MEDS: SPIRONOLACTONE 25 MG TABLET PO SCH ×2 (09:33→15:09)
[2020-06-09] MEDS: THIAMINE 100 MG TABLET PO SCH (09:34)
[2020-06-09] MEDS: DOCUSATE SODIUM 100 MG CAPSULE PO SCH ×2 (11:35→21:08)
[2020-06-09] MEDS: LORazepam 1 MG TABLET PO PRN (13:34)
--- NOTE | 2020-06-09 13:52 | Internal Med Progress Note ---
SUBJECTIVE Subjective Patient information: Note initiated : 06/09/20 at 1:48 pm Service Date, if different from initiated Date: [] Patient: Pernell Granda 65 y/o M admitted on 06/04/20 for Shortness of breath. Chief Complaint: [CHF exacerbation.] Overnight: Still on supplement oxygen. No fever. No other major overnight events. Subjective: c/o anxiety. c/o shortness of breath. c/o bilateral lower leg/feet swelling. Constitutional Vitals: Vital Signs Temp Pulse Resp BP Pulse Ox 36.2 C 90 25 H 116/86 100 06/09/20 12:02 06/09/20 11:39 06/09/20 12:02 06/09/20 12:02 06/09/20 12:02 Period Temp Pulse Resp BP Sys/Sebastian Pulse Ox Last 24 Hr 36.2 C-36.8 C 82-90 19-34 116-182/68-88 90-100 Intake and Output 06/08/20 06/09/20 06/09/20 21:59 05:59 13:59 Intake Total 720 200 120 Output Total 1025 875 525 Balance -305 -675 -405 Weight 148.37 kg Intake & Output: Intake & Output 06/08/20 06/09/20 06/09/20 21:59 05:59 13:59 Intake Total 720 200 120 Output Total 1025 875 525 Balance -305 -675 -405 Weight 148.37 kg Intake: Oral 720 200 120 Output: Void Amount 1025 875 525 Other: Meal Breakfast Percent of Meal Consumed 25% Feeding Ability Independent Urine Appearance Clear Clear Clear Urine Color Bright Yellow Dark Yellow Bright Yellow Urine Odor Normal Normal Stool Size Moderate Stool Color Brown Stool Consistency Soft Formed # Bowel Movements 1 General appearance: cooperative and no acute distress Head Head exam: Present atraumatic and normocephalic Eye Eye exam: Present EOMI and PERRL ENT ENT exam: Present mucous membranes moist, normal exam and normal external ear exam Neck Neck exam: Present normal inspection; Absent lymphadenopathy, tenderness and thyromegaly Respiratory Respiratory exam: Absent accessory muscle use, respiratory distress and wheezes Additional comments: Rapid shallow breathing pattern Cardiovascular Cardiovascular exam: Present normal rate and rhythm; Absent JVD GI/Abdominal GI/Abdominal exam: Present normal bowel sounds and soft; Absent organomegaly and tenderness Rectal Rectal exam: Present deferred Extremities Exam Extremities exam: Present full ROM, normal capillary refill and normal inspection; Absent tenderness Neurological Exam Neurological exam: Present alert, CN II-XII intact and oriented X3; Absent motor sensory deficit Psychiatric Psychiatric exam: Present anxious, normal affect and normal mood; Absent depressed Skin Skin exam: Present dry; Absent intact Additional comments: Erythema, swelling, with blister in bilateral calves and feet OBJ DATA Labs CBC & Chem 7: 06/09/20 05:52 06/09/20 05:52 Labs: Abnormal Lab Results 06/09/20 06/09/20 06/09/20 05:52 05:52 05:52 RBC 3.93 L Hgb 10.2 L Hct 33.1 L MCH MCHC 30.8 L RDW 17.7 H MPV 10.8 H Lymph % (Auto) 14.0 L Lymph # (Auto) 1.20 L PT 26.5 H INR 2.3 H Sodium 132 L Chloride 91 L Carbon Dioxide 32 H Anion Gap BUN Creatinine Glucose Uric Acid 8.4 H Calcium Phosphorus 2.1 L Direct Bilirubin 0.4 H GGT 71 H AST 70 H ALT 150 H Alkaline Phosphatase 167 H Lactate Dehydrogenase 291 H Globulin 4.1 H Albumin/Globulin Ratio 0.9 L 06/08/20 06/08/20 06/08/20 06:09 06:09 06:09 RBC 3.97 L Hgb 10.2 L Hct 33.9 L MCH 25.7 L MCHC 30.1 L RDW 17.7 H MPV 10.5 H Lymph % (Auto) 12.8 L Lymph # (Auto) 1.15 L PT 25.6 H INR 2.2 H Sodium 132 L Chloride 94 L Carbon Dioxide 33 H Anion Gap 5.0 L BUN 24 H Creatinine Glucose 136 H Uric Acid 8.9 H Calcium 8.5 L Phosphorus Direct Bilirubin 0.5 H GGT 65 H AST 95 H ALT 186 H Alkaline Phosphatase 156 H Lactate Dehydrogenase 234 H Globulin 4.1 H Albumin/Globulin Ratio 0.9 L 06/07/20 06/07/20 06/07/20 05:10 05:10 05:10 RBC 3.85 L Hgb 10.0 L Hct 33.6 L MCH MCHC 29.8 L RDW 17.5 H MPV 10.8 H Lymph % (Auto) Lymph # (Auto) 1.23 L PT 32.6 H INR 3.0 H Sodium 128 L Chloride 91 L Carbon Dioxide Anion Gap BUN 25 H Creatinine 1.4 H Glucose 164 H Uric Acid 9.3 H Calcium Phosphorus Direct Bilirubin 0.5 H GGT 65 H AST 173 H ALT 255 H Alkaline Phosphatase 152 H Lactate Dehydrogenase 360 H Globulin 4.0 H Albumin/Globulin Ratio 0.9 L Meds: Medications Acetaminophen (Acetaminophen 325 Mg Tablet) 650 mg PO Q4-6HP PRN; Protocol PRN Reason: Per Pain Protocol/Fever > 101 Last Admin: 06/05/20 11:54 Dose: 650 mg Documented by: Albuterol/Ipratropium (Ipratropium/Albuterol 3 Ml Ampul.Neb) 3 ml NEB Q4HP PRN PRN Reason: Shortness Of Breath Last Admin: 06/09/20 07:58 Dose: 3 ml Documented by: Bisacodyl (Bisacodyl 10 Mg Supp.Rect) 10 mg [place] Q2-3DAYS PRN PRN Reason: Constipation Diltiazem HCl (Diltiazem 240 Mg Cap.Xl.24h) 240 mg PO [facility] Last Admin: 06/08/20 23:30 Dose: 240 mg Documented by: Docusate Sodium (Docusate Sodium 100 Mg Capsule) 100 mg PO BID [facility] Last Admin: 06/09/20 11:35 Dose: Not Given Documented by: Furosemide (Furosemide 40 Mg Tablet) 40 mg PO TID [facility] Last Admin: 06/09/20 09:32 Dose: 40 mg Documented by: Gabapentin (Gabapentin 300 Mg Capsule) 300 mg PO BID [facility] Last Admin: 06/09/20 09:33 Dose: 300 mg Documented by: Hydralazine HCl (Hydralazine 20 Mg/Ml Vial) 10 mg IV Q4-6HP PRN PRN Reason: Hypertension Potassium Chloride 40 meq/ (Dextrose) 520 mls @ 130 mls/hr IV UD PRN PRN Reason: K+ = or < 3.5 Acetaminophen (Ofirmev) 650 mg in 65 mls @ 130 mls/hr IV Q6HP PRN; Protocol PRN Reason: Per Pain Protocol/Fever > 101 Magnesium Sulfate (Magnesium Sulfate) 2 gm in 50 mls @ 50 mls/hr IV UD PRN PRN Reason: MG = or < 1.7 Iron Carb/Multivit/[place]/Folic Acid (Multivit,Ther Iron,Ca,Fa & Min 1 Tablet) 1 tab PO DAILY [facility] Last Admin: 06/09/20 09:33 Dose: 1 tab Documented by: Lisinopril (Lisinopril 10 Mg Tablet) 10 mg PO DAILY [facility] Last Admin: 06/09/20 09:33 Dose: 10 mg Documented by: Lorazepam (Lorazepam 1 Mg Tablet) 1 mg PO Q6HP PRN PRN Reason: ANXIETY/SEDATION Last Admin: 06/09/20 13:34 Dose: 1 mg Documented by: Melatonin (Melatonin 3 Mg Tablet) 3 mg PO HSP PRN PRN Reason: Insomnia Metoprolol Succinate (Metoprolol Succinate 25 Mg Tab.Xl.24h) 25 mg PO DAILY [facility] Last Admin: 06/09/20 09:32 Dose: 25 mg Documented by: Metoprolol Tartrate (Metoprolol Tartrate 5 Mg/5 Ml Vial) 5 mg IV Q5M PRN PRN Reason: Heart Rate > 140 bpm Ondansetron HCl (Ondansetron 4 Mg Odt Tablet) 4 mg SL Q4-6HP PRN; Protocol PRN Reason: Nausea And Vomiting Last Admin: 06/05/20 20:17 Dose: 4 mg Documented by: Ondansetron HCl (Ondansetron 4 Mg/2 Ml Vial) 4 mg IV Q4-6HP PRN; Protocol PRN Reason: Nausea And Vomiting Polyethylene Glycol (Polyethylene Glycol 3350 17 Gm Packet) 17 gm PO DAILYP PRN PRN Reason: Constipation Potassium/Phosphorus/Sodium (Neutra Phos 1 Packet) 2 packet PO DAILYP PRN PRN Reason: PHOS <2.5 Senna/Docusate Sodium (Sennosides/Docusate Sodium 1 Tab Tablet) 1 tab PO HS [facility] Last Admin: 06/08/20 23:32 Dose: Not Given Documented by: Sodium Chloride (0.9 % Sodium Chloride 10 Ml Syringe) 10 ml IV Q8 [facility] Last Admin: 06/09/20 05:28 Dose: 10 ml Documented by: Spironolactone (Spironolactone 25 Mg Tablet) 50 mg PO BIDD [facility] Last Admin: 06/09/20 09:33 Dose: 50 mg Documented by: Thiamine HCl (Thiamine 100 Mg Tablet) 100 mg PO DAILY [facility] Last Admin: 06/09/20 09:34 Dose: 100 mg Documented by: Warfarin Sodium (Warfarin Per Pharmacy) 1 order PO UD [facility] A/P Assessment and plan (1) Venous stasis ulcer: Status: Acute (2) CHF exacerbation: Status: Acute (3) Atrial fibrillation with RVR: Status: Acute (4) History of DVT (deep vein thrombosis): Status: Chronic (5) Anemia, normocytic normochromic: Status: Acute (6) Hypokalemia: Status: Acute (7) Stage 1 acute kidney injury: Status: Acute Narrative A/P Narrative: 1. CHF exacerbation: Stays in inpatient PCU/med surg telemetry 2D echocardiogram, showing global hypokinesis with LVEF 21%; no diastolic dysfunction 2L/day fluid restriction Daily weigh Intake and output measurement, aim for negative fluid balance Lasix 40mg PO q8hr Metoprolol Succinate 25mg PO daily Lisinopril 10mg PO daily Aldactone 50mg PO BID Hydralazine 10mg IV q4-6hr PRN SBP>=180mmHg and/or DBP>=110mmHg Try BiPAP to better ventilate patient Ativan 1mg PO q6hr PRN anxiety to help patient better tolerate BiPAP 2. Atrial fibrillation RVR: Metoprolol Succinate 25mg PO daily Diltiazem ER 240mg PO daily Daily INR, goal 2-3 Coumadin, pharmacy help dosing 3. Bilateral lower extremities ulcers and blisters, likely venous stasis: Consult wound care Dr. Willams, recs. appreciated Bilateral lower extremities Venous Doppler US to rule out DVT --> no DVT Spoke with Dr. Elias TEJEDA, recs. only if DVT above poppiteal level, would consider transferring patient for IVC filter placement Wound care as per Dr. Willams instruction 4. Neuropathy: Continue Gabapentin 5. Degenerative arthritis: Continue home regimen of Tramadol 6. Anemia, normocytic normochromic: cbc w/ auto diff daily, transfuse pRBC if Hemoglobin <7.0, active bleeding, or if patient becomes symptomatic 7. Hypokalemia: RESOLVED Secondary to aggressive diuretics therapy as part of the treatment of CHF KCl 40mEq PO once now Avoid potassium replacement protocol given acute kidney injury 8. stage 1 acute kidney injury: RESOLVED Secondary to aggressive diuretics therapy as part of the treatment of CHF Saline lock and 2L fluid restriction Lasix switch from IV to PO (less potency) Repeat CMP in the AM to trend kidney functions Avoid nephrotoxic agents Time Spent With Patient Time: Total time spent is greater than 50% in coordination of care (as documented) at patient's floor/unit and/or counseling patient: QUALITY VTE Deep Vein Thrombosis/Pulmonary Embolism Present on Admission: No
[2020-06-09] MEDS ORDERED: BUMETANIDE 0.25 MG/ML VIAL IV ONE (15:39)
[2020-06-09] MEDS: DILTIAZEM 240 MG CAP.XL.24H PO SCH (21:07)
[2020-06-09] MEDS: SENNOSIDES/DOCUSATE SODIUM 1 TAB TABLET PO SCH (21:08)
[2020-06-09] MEDS: ACETAMINOPHEN 325 MG TABLET PO PRN (22:06)
[2020-06-10] MEDS: 0.9 % SODIUM CHLORIDE 10 ML SYRINGE IV SCH ×3 (05:57→21:43)
[2020-06-10] MEDS: GABAPENTIN 300 MG CAPSULE PO SCH ×2 (08:13→21:35)
[2020-06-10] MEDS: SPIRONOLACTONE 25 MG TABLET PO SCH ×2 (08:13→16:29)
[2020-06-10] MEDS: DOCUSATE SODIUM 100 MG CAPSULE PO SCH ×2 (08:14→21:35)
[2020-06-10] MEDS: MULTIVIT,THER IRON,CA,FA & MIN 1 TABLET PO SCH (08:14)
[2020-06-10] MEDS: FUROSEMIDE 40 MG TABLET PO SCH ×3 (08:14→21:34)
[2020-06-10] MEDS: THIAMINE 100 MG TABLET PO SCH (08:14)
[2020-06-10] MEDS: LISINOPRIL 10 MG TABLET PO SCH (08:14)
[2020-06-10 08:36] LABS: Basophils # (Auto) 0.04 K/mcL (0.00-0.20); Basophils % (Auto) 0.5 % (0.0-2.0); Eosinophils # (Auto) 0.34 K/mcL (0.00-0.70); Eosinophils % (Auto) 4.1 % (0.0-7.0); Hematocrit 31.7 % (41.0-55.0); Hemoglobin 9.7 g/dL (13.5-16.5); Lymphocytes % (Auto) 14.6 % (15.0-49.0); Mean Cell Volume 84.1 fL (80.0-100.0); Mean Corpuscular HGB Conc 30.6 g/dL (31.0-36.0); Mean Platelet Volume 10.7 fL (7.4-10.4); Monocytes # (Auto) 0.94 K/mcL (0.10-0.90); Monocytes % (Auto) 11.4 % (1.0-12.0); Neutrophils % (Auto) 69.4 % (38.0-78.0); Platelet Count 310 K/mcL (140-440); RBC 3.77 M/mcL (4.50-5.90); Red Cell Distribution Width 17.5 % (11.5-14.5); WBC 8.2 K/mcL (4.5-11.0)
[2020-06-10 08:44] LABS: ALT/SGPT 105 U/L (<40); AST/SGOT 47 U/L (<40); Albumin 3.1 gm/dL (3.2-5.2); Albumin/Globulin Ratio 0.8 (1.0-2.3); Alkaline Phosphatase 153 U/L (39-117); Bilirubin,Total 0.9 mg/dL (0.1-1.0); Blood Urea Nitrogen 18 mg/dL (8-23); Calcium 8.6 mg/dL (8.6-10.4); Carbon Dioxide 35 mmol/L (22-30); Chloride 91 mmol/L (96-108); Glomerular Filtration Rate 62; Glucose 90 mg/dL (70-105)
[2020-06-10 08:45] LABS: INR 2.3 (0.9-1.1); Prothrombin Time 25.9 sec (11.9-14.5)
--- NOTE | 2020-06-10 08:59 | Internal Med Progress Note ---
SUBJECTIVE Subjective Patient information: Note initiated : 06/10/20 at 8:52 am Service Date, if different from initiated Date: [] Patient: Pernell Granda 65 y/o M admitted on 06/04/20 for Shortness of breath. Chief Complaint: [CHF exacerbation] Overnight: Tolerating BiPAP overnight while sleeping. Bradycardia down to 30s bpm overnight while sleeping. Subjective: Mild SOB. Denies anxiety. Denies chest pain. Denies palpitation. Denies lethargy. Constitutional Vitals: Vital Signs Temp Pulse Resp BP Pulse Ox 36.2 C 72 20 133/81 100 06/10/20 08:10 06/09/20 15:30 06/10/20 08:10 06/10/20 08:10 06/10/20 08:10 Period Temp Pulse Resp BP Sys/Sebastian Pulse Ox Last 24 Hr 36.2 C-36.7 C 70-90 16-33 116-138/64-86 94-100 Intake and Output 06/09/20 06/10/20 06/10/20 21:59 05:59 13:59 Intake Total 840 860 Output Total 1150 400 Balance -310 460 Weight 102.149 kg Intake & Output: Intake & Output 06/09/20 06/10/20 06/10/20 21:59 05:59 13:59 Intake Total 840 860 Output Total 1150 400 Balance -310 460 Weight 102.149 kg Intake: Oral 840 860 Output: Void Amount 1150 400 Other: Meal Dinner Percent of Meal Consumed 100% Urine Appearance Clear Urine Color Light Deena Pale Urine Odor Normal General appearance: cooperative and no acute distress Head Head exam: Present atraumatic and normocephalic Eye Eye exam: Present EOMI and PERRL ENT ENT exam: Present mucous membranes moist, normal exam and normal external ear exam Additional comments: Nasal cannula in place. Neck Neck exam: Present normal inspection; Absent lymphadenopathy, tenderness and thyromegaly Respiratory Respiratory exam: Absent accessory muscle use, respiratory distress and wheezes Cardiovascular Cardiovascular exam: Present irregular rhythm; Absent JVD GI/Abdominal GI/Abdominal exam: Present normal bowel sounds and soft; Absent organomegaly and tenderness Rectal Rectal exam: Present deferred Extremities Exam Extremities exam: Present full ROM, normal capillary refill and normal inspection; Absent tenderness Neurological Exam Neurological exam: Present alert, CN II-XII intact and oriented X3; Absent motor sensory deficit Psychiatric Psychiatric exam: Present normal affect and normal mood; Absent anxious and depressed Skin Skin exam: Present dry Additional comments: Multiple venous stasis ulcers in bilateral lower legs and feet. OBJ DATA Labs CBC & Chem 7: 06/10/20 07:40 06/10/20 07:40 Labs: Abnormal Lab Results 06/10/20 06/10/20 06/10/20 07:40 07:40 05:19 RBC 3.77 L Hgb 9.7 L Hct 31.7 L MCH 25.7 L MCHC 30.6 L RDW 17.5 H MPV 10.7 H Lymph % (Auto) 14.6 L Lymph # (Auto) 1.20 L [place] # (Auto) 0.94 H PT 25.9 H INR 2.3 H Sodium 131 L Chloride 91 L Carbon Dioxide 35 H Anion Gap 5.0 L BUN Glucose Uric Acid Calcium Phosphorus Direct Bilirubin GGT AST 47 H ALT 105 H Alkaline Phosphatase 153 H Lactate Dehydrogenase Albumin 3.1 L Globulin 4.0 H Albumin/Globulin Ratio 0.8 L 06/09/20 06/09/20 06/09/20 05:52 05:52 05:52 RBC 3.93 L Hgb 10.2 L Hct 33.1 L MCH MCHC 30.8 L RDW 17.7 H MPV 10.8 H Lymph % (Auto) 14.0 L Lymph # (Auto) 1.20 L [place] # (Auto) PT 26.5 H INR 2.3 H Sodium 132 L Chloride 91 L Carbon Dioxide 32 H Anion Gap BUN Glucose Uric Acid 8.4 H Calcium Phosphorus 2.1 L Direct Bilirubin 0.4 H GGT 71 H AST 70 H ALT 150 H Alkaline Phosphatase 167 H Lactate Dehydrogenase 291 H Albumin Globulin 4.1 H Albumin/Globulin Ratio 0.9 L 06/08/20 06/08/20 06/08/20 06:09 06:09 06:09 RBC 3.97 L Hgb 10.2 L Hct 33.9 L MCH 25.7 L MCHC 30.1 L RDW 17.7 H MPV 10.5 H Lymph % (Auto) 12.8 L Lymph # (Auto) 1.15 L [place] # (Auto) PT 25.6 H INR 2.2 H Sodium 132 L Chloride 94 L Carbon Dioxide 33 H Anion Gap 5.0 L BUN 24 H Glucose 136 H Uric Acid 8.9 H Calcium 8.5 L Phosphorus Direct Bilirubin 0.5 H GGT 65 H AST 95 H ALT 186 H Alkaline Phosphatase 156 H Lactate Dehydrogenase 234 H Albumin Globulin 4.1 H Albumin/Globulin Ratio 0.9 L Meds: Medications Acetaminophen (Acetaminophen 325 Mg Tablet) 650 mg PO Q4-6HP PRN; Protocol PRN Reason: Per Pain Protocol/Fever > 101 Last Admin: 06/09/20 22:06 Dose: 650 mg Documented by: Albuterol/Ipratropium (Ipratropium/Albuterol 3 Ml Ampul.Neb) 3 ml NEB Q4HP PRN PRN Reason: Shortness Of Breath Last Admin: 06/09/20 07:58 Dose: 3 ml Documented by: Bisacodyl (Bisacodyl 10 Mg Supp.Rect) 10 mg [place] Q2-3DAYS PRN PRN Reason: Constipation Diltiazem HCl (Diltiazem 240 Mg Cap.Xl.24h) 180 mg PO [facility] Docusate Sodium (Docusate Sodium 100 Mg Capsule) 100 mg PO BID [facility] Last Admin: 06/10/20 08:14 Dose: 100 mg Documented by: Furosemide (Furosemide 40 Mg Tablet) 40 mg PO TID [facility] Last Admin: 06/10/20 08:14 Dose: 40 mg Documented by: Gabapentin (Gabapentin 300 Mg Capsule) 300 mg PO BID [facility] Last Admin: 06/10/20 08:13 Dose: 300 mg Documented by: Hydralazine HCl (Hydralazine 20 Mg/Ml Vial) 10 mg IV Q4-6HP PRN PRN Reason: Hypertension Potassium Chloride 40 meq/ (Dextrose) 520 mls @ 130 mls/hr IV UD PRN PRN Reason: K+ = or < 3.5 Acetaminophen (Ofirmev) 650 mg in 65 mls @ 130 mls/hr IV Q6HP PRN; Protocol PRN Reason: Per Pain Protocol/Fever > 101 Magnesium Sulfate (Magnesium Sulfate) 2 gm in 50 mls @ 50 mls/hr IV UD PRN PRN Reason: MG = or < 1.7 Iron Carb/Multivit/[place]/Folic Acid (Multivit,Ther Iron,Ca,Fa & Min 1 Tablet) 1 tab PO DAILY [facility] Last Admin: 06/10/20 08:14 Dose: 1 tab Documented by: Lisinopril (Lisinopril 10 Mg Tablet) 10 mg PO DAILY [facility] Last Admin: 06/10/20 08:14 Dose: 10 mg Documented by: Lorazepam (Lorazepam 1 Mg Tablet) 1 mg PO Q6HP PRN PRN Reason: ANXIETY/SEDATION Last Admin: 06/09/20 13:34 Dose: 1 mg Documented by: Melatonin (Melatonin 3 Mg Tablet) 3 mg PO HSP PRN PRN Reason: Insomnia Metoprolol Succinate (Metoprolol Succinate 25 Mg Tab.Xl.24h) 25 mg PO DAILY [facility] Last Admin: 06/09/20 09:32 Dose: 25 mg Documented by: Metoprolol Tartrate (Metoprolol Tartrate 5 Mg/5 Ml Vial) 5 mg IV Q5M PRN PRN Reason: Heart Rate > 140 bpm Ondansetron HCl (Ondansetron 4 Mg Odt Tablet) 4 mg SL Q4-6HP PRN; Protocol PRN Reason: Nausea And Vomiting Last Admin: 06/05/20 20:17 Dose: 4 mg Documented by: Ondansetron HCl (Ondansetron 4 Mg/2 Ml Vial) 4 mg IV Q4-6HP PRN; Protocol PRN Reason: Nausea And Vomiting Polyethylene Glycol (Polyethylene Glycol 3350 17 Gm Packet) 17 gm PO DAILYP PRN PRN Reason: Constipation Potassium/Phosphorus/Sodium (Neutra Phos 1 Packet) 2 packet PO DAILYP PRN PRN Reason: PHOS <2.5 Senna/Docusate Sodium (Sennosides/Docusate Sodium 1 Tab Tablet) 1 tab PO HS [facility] Last Admin: 06/09/20 21:08 Dose: Not Given Documented by: Sodium Chloride (0.9 % Sodium Chloride 10 Ml Syringe) 10 ml IV Q8 [facility] Last Admin: 06/10/20 05:57 Dose: 10 ml Documented by: Spironolactone (Spironolactone 25 Mg Tablet) 50 mg PO BIDD [facility] Last Admin: 06/10/20 08:13 Dose: 50 mg Documented by: Thiamine HCl (Thiamine 100 Mg Tablet) 100 mg PO DAILY [facility] Last Admin: 06/10/20 08:14 Dose: 100 mg Documented by: Warfarin Sodium (Warfarin Per Pharmacy) 1 order PO UD [facility] A/P Assessment and plan (1) Venous stasis ulcer: Status: Acute (2) CHF exacerbation: Status: Acute (3) Atrial fibrillation with RVR: Status: Acute (4) History of DVT (deep vein thrombosis): Status: Chronic (5) Anemia, normocytic normochromic: Status: Acute (6) Hypokalemia: Status: Acute (7) Stage 1 acute kidney injury: Status: Acute Narrative A/P Narrative: 1. CHF exacerbation: Stays in inpatient PCU/med surg telemetry 2D echocardiogram, showing global hypokinesis with LVEF 21%; no diastolic dysfunction 2L/day fluid restriction Daily weigh Intake and output measurement, aim for negative fluid balance Lasix 40mg PO q8hr Metoprolol Succinate 25mg PO daily Lisinopril 10mg PO daily Aldactone 50mg PO BID Hydralazine 10mg IV q4-6hr PRN SBP>=180mmHg and/or DBP>=110mmHg Try BiPAP PRN SOB to better ventilate patient Ativan 1mg PO q6hr PRN anxiety to help patient better tolerate BiPAP 2. Atrial fibrillation RVR: Metoprolol Succinate 25mg PO daily Diltiazem ER 240mg -->180mg PO daily to avoid bradycardia especially at night Daily INR, goal 2-3 Coumadin, pharmacy help dosing 3. Bilateral lower extremities ulcers and blisters, likely venous stasis: Consult wound care flaco Breaux. appreciated Bilateral lower extremities Venous Doppler US to rule out DVT --> no DVT Spoke with flaco Le. only if DVT above poppiteal level, would consider transferring patient for IVC filter placement Wound care as per Dr. Willams instruction 4. Neuropathy: Continue Gabapentin 5. Degenerative arthritis: Continue home regimen of Tramadol 6. Anemia, normocytic normochromic: cbc w/ auto diff daily, transfuse pRBC if Hemoglobin <7.0, active bleeding, or if patient becomes symptomatic 7. Hypokalemia: RESOLVED Secondary to aggressive diuretics therapy as part of the treatment of CHF KCl 40mEq PO once now Avoid potassium replacement protocol given acute kidney injury 8. stage 1 acute kidney injury: RESOLVED Secondary to aggressive diuretics therapy as part of the treatment of CHF Saline lock and 2L fluid restriction Lasix 40mg PO q8hr Repeat CMP in the AM to trend kidney functions Avoid nephrotoxic agents Time Spent With Patient Time: Total time spent is greater than 50% in coordination of care (as documented) at patient's floor/unit and/or counseling patient: QUALITY VTE Deep Vein Thrombosis/Pulmonary Embolism Present on Admission: No
[2020-06-10] MEDS: LORazepam 1 MG TABLET PO PRN ×2 (11:47→21:34)
[2020-06-10] MEDS: NICOTINE 21 MG PATCH TOPICAL SCH (11:49)
[2020-06-10] MEDS ORDERED: WARFARIN 7.5 MG TABLET PO ONE (14:00)
[2020-06-10] MEDS: METOPROLOL SUCCINATE 25 MG TAB.XL.24H PO SCH (14:26)
[2020-06-10] MEDS ORDERED: METOPROLOL TARTRATE 5 MG/5 ML VIAL IV PRN (15:47)
--- NOTE | 2020-06-10 15:48 | Internal Med Progress Note ---
SUBJECTIVE Subjective Patient information: Note initiated : 06/10/20 at 3:40 pm Service Date, if different from initiated Date: [] Patient: Pernell Granda 65 y/o M admitted on 06/04/20 for Shortness of breath. Chief Complaint: [] Interval history: 06/10 Overnight: Tolerating BiPAP overnight while sleeping. Bradycardia down to 30s bpm overnight while sleeping. Subjective: Mild SOB. Denies anxiety. Denies chest pain. Denies palpitation. Denies lethargy. 06/11 Constitutional Vitals: Vital Signs Temp Pulse Resp BP Pulse Ox 97.1 F 72 24 H 112/67 96 06/10/20 11:56 06/09/20 15:30 06/10/20 11:56 06/10/20 11:56 06/10/20 11:56 Period Temp Pulse Resp BP Sys/Sebastian Pulse Ox Last 24 Hr 97.1 F-98.0 F 112-138/64-86 94-100 Intake and Output 06/10/20 06/10/20 06/10/20 05:59 13:59 21:59 Intake Total 860 600 Output Total 400 200 Balance 460 -200 600 Weight 102.149 kg Patient Weight 06/11/20 05:59 Weight 102.149 kg Intake & Output: Intake & Output 06/10/20 06/10/20 06/10/20 05:59 13:59 21:59 Intake Total 860 600 Output Total 400 200 Balance 460 -200 600 Weight 102.149 kg Intake: Oral 860 600 Output: Void Amount 400 200 Other: Meal Breakfast snack. grahm crackers. Percent of Meal Consumed 100% 100% Feeding Ability Independent Independent Urine Appearance Clear Urine Color Pale Light Deena Exam: General: Alert, Awake, No acute Distress Eyes/N/T: EOMI, Head/Neck: neck supple, CV: irreg irreg, No murmurs, Pulm: Clear b/l, no wheezing/rhonchi/rales Abd: soft, nontender, +BS x4 Ext: no clubbing/cyanosis Neuro: Alert, no focal deficits, moves all extremities, Skin: warm/dry OBJ DATA Labs CBC & Chem 7: 06/10/20 07:40 06/10/20 07:40 Labs: Abnormal Lab Results 06/10/20 06/10/20 06/10/20 07:40 07:40 05:19 RBC 3.77 L Hgb 9.7 L Hct 31.7 L MCH 25.7 L MCHC 30.6 L RDW 17.5 H MPV 10.7 H Lymph % (Auto) 14.6 L Lymph # (Auto) 1.20 L [place] # (Auto) 0.94 H PT 25.9 H INR 2.3 H Sodium 131 L Chloride 91 L Carbon Dioxide 35 H Anion Gap 5.0 L BUN Glucose Uric Acid Calcium Phosphorus Direct Bilirubin GGT AST 47 H ALT 105 H Alkaline Phosphatase 153 H Lactate Dehydrogenase Albumin 3.1 L Globulin 4.0 H Albumin/Globulin Ratio 0.8 L 06/09/20 06/09/20 06/09/20 05:52 05:52 05:52 RBC 3.93 L Hgb 10.2 L Hct 33.1 L MCH MCHC 30.8 L RDW 17.7 H MPV 10.8 H Lymph % (Auto) 14.0 L Lymph # (Auto) 1.20 L [place] # (Auto) PT 26.5 H INR 2.3 H Sodium 132 L Chloride 91 L Carbon Dioxide 32 H Anion Gap BUN Glucose Uric Acid 8.4 H Calcium Phosphorus 2.1 L Direct Bilirubin 0.4 H GGT 71 H AST 70 H ALT 150 H Alkaline Phosphatase 167 H Lactate Dehydrogenase 291 H Albumin Globulin 4.1 H Albumin/Globulin Ratio 0.9 L 06/08/20 06/08/20 06/08/20 06:09 06:09 06:09 RBC 3.97 L Hgb 10.2 L Hct 33.9 L MCH 25.7 L MCHC 30.1 L RDW 17.7 H MPV 10.5 H Lymph % (Auto) 12.8 L Lymph # (Auto) 1.15 L [place] # (Auto) PT 25.6 H INR 2.2 H Sodium 132 L Chloride 94 L Carbon Dioxide 33 H Anion Gap 5.0 L BUN 24 H Glucose 136 H Uric Acid 8.9 H Calcium 8.5 L Phosphorus Direct Bilirubin 0.5 H GGT 65 H AST 95 H ALT 186 H Alkaline Phosphatase 156 H Lactate Dehydrogenase 234 H Albumin Globulin 4.1 H Albumin/Globulin Ratio 0.9 L Meds: Medications Acetaminophen (Acetaminophen 325 Mg Tablet) 650 mg PO Q4-6HP PRN; Protocol PRN Reason: Per Pain Protocol/Fever > 101 Last Admin: 06/09/20 22:06 Dose: 650 mg Documented by: Albuterol/Ipratropium (Ipratropium/Albuterol 3 Ml Ampul.Neb) 3 ml NEB Q4HP PRN PRN Reason: Shortness Of Breath Last Admin: 06/09/20 07:58 Dose: 3 ml Documented by: Bisacodyl (Bisacodyl 10 Mg Supp.Rect) 10 mg [place] Q2-3DAYS PRN PRN Reason: Constipation Diltiazem HCl (Diltiazem 240 Mg Cap.Xl.24h) 180 mg PO [facility] Docusate Sodium (Docusate Sodium 100 Mg Capsule) 100 mg PO BID [facility] Last Admin: 06/10/20 08:14 Dose: 100 mg Documented by: Furosemide (Furosemide 40 Mg Tablet) 40 mg PO TID [facility] Last Admin: 06/10/20 14:38 Dose: 40 mg Documented by: Gabapentin (Gabapentin 300 Mg Capsule) 300 mg PO BID [facility] Last Admin: 06/10/20 08:13 Dose: 300 mg Documented by: Hydralazine HCl (Hydralazine 20 Mg/Ml Vial) 10 mg IV Q4-6HP PRN PRN Reason: Hypertension Potassium Chloride 40 meq/ (Dextrose) 520 mls @ 130 mls/hr IV UD PRN PRN Reason: K+ = or < 3.5 Acetaminophen (Ofirmev) 650 mg in 65 mls @ 130 mls/hr IV Q6HP PRN; Protocol PRN Reason: Per Pain Protocol/Fever > 101 Magnesium Sulfate (Magnesium Sulfate) 2 gm in 50 mls @ 50 mls/hr IV UD PRN PRN Reason: MG = or < 1.7 Iron Carb/Multivit/[place]/Folic Acid (Multivit,Ther Iron,Ca,Fa & Min 1 Tablet) 1 tab PO DAILY [facility] Last Admin: 06/10/20 08:14 Dose: 1 tab Documented by: Lisinopril (Lisinopril 10 Mg Tablet) 10 mg PO DAILY [facility] Last Admin: 06/10/20 08:14 Dose: 10 mg Documented by: Lorazepam (Lorazepam 1 Mg Tablet) 1 mg PO Q6HP PRN PRN Reason: ANXIETY/SEDATION Last Admin: 06/10/20 11:47 Dose: 1 mg Documented by: Melatonin (Melatonin 3 Mg Tablet) 3 mg PO HSP PRN PRN Reason: Insomnia Metoprolol Succinate (Metoprolol Succinate 25 Mg Tab.Xl.24h) 25 mg PO DAILY [facility] Last Admin: 06/10/20 14:26 Dose: Not Given Documented by: Metoprolol Tartrate (Metoprolol Tartrate 5 Mg/5 Ml Vial) 5 mg IV Q5M PRN PRN Reason: Heart Rate > 140 bpm Nicotine (Nicotine 21 Mg Patch) 21 mg TOPICAL DAILY@1000 [facility] Last Admin: 06/10/20 11:49 Dose: 21 mg Documented by: Ondansetron HCl (Ondansetron 4 Mg Odt Tablet) 4 mg SL Q4-6HP PRN; Protocol PRN Reason: Nausea And Vomiting Last Admin: 06/05/20 20:17 Dose: 4 mg Documented by: Ondansetron HCl (Ondansetron 4 Mg/2 Ml Vial) 4 mg IV Q4-6HP PRN; Protocol PRN Reason: Nausea And Vomiting Polyethylene Glycol (Polyethylene Glycol 3350 17 Gm Packet) 17 gm PO DAILYP PRN PRN Reason: Constipation Potassium/Phosphorus/Sodium (Neutra Phos 1 Packet) 2 packet PO DAILYP PRN PRN Reason: PHOS <2.5 Senna/Docusate Sodium (Sennosides/Docusate Sodium 1 Tab Tablet) 1 tab PO HS [facility] Last Admin: 06/09/20 21:08 Dose: Not Given Documented by: Sodium Chloride (0.9 % Sodium Chloride 10 Ml Syringe) 10 ml IV Q8 [facility] Last Admin: 06/10/20 14:38 Dose: 10 ml Documented by: Spironolactone (Spironolactone 25 Mg Tablet) 50 mg PO BIDD [facility] Last Admin: 06/10/20 08:13 Dose: 50 mg Documented by: Thiamine HCl (Thiamine 100 Mg Tablet) 100 mg PO DAILY [facility] Last Admin: 06/10/20 08:14 Dose: 100 mg Documented by: Warfarin Sodium (Warfarin Per Pharmacy) 1 order PO UD [facility] A/P Narrative A/P Narrative: A: *CHF exacerbation, systolic/diastolic: -echocardiogram, showing global hypokinesis with LVEF 21%; diastolic dysfxn *Acute hypoxic resp faliure: 2/2 above -4L NC *Atrial fibrillation RVR: improved *b/l LE ulcers/blisters, likely venous stasis: *mod Pulm HTN: *Hypokalemia: RESOLVED -Secondary to aggressive diuretics therapy as part of the treatment of CHF *ESTEPHANIA on CKD II: improved -Secondary to aggressive diuretics therapy as part of the treatment of CHF *Anemia, normocytic normochromic: *Hyponatremia: 2/2 above *HTN: on ACEI/aldactone *Neuropathy: *Degenerative arthritis: *Anxiety: *Obese: *Transaminitis: 2/2 congestive hepatopathy, improved P: -Lasix 40mg PO q8hr -Metoprolol Succinate 25mg PO daily, Lisinopril 10mg PO daily, Aldactone 50mg PO BID -no Diltiazem given depressed LV systolic fxn -Consult wound care Dr. Willams, recs. appreciated -Bilateral lower extremities Venous Doppler US to rule out DVT --> no DVT -ppx: warfarin per pharm Time Spent With Patient Time: Total time spent is greater than 50% in coordination of care (as documented) at patient's floor/unit and/or counseling patient: QUALITY VTE Deep Vein Thrombosis/Pulmonary Embolism Present on Admission: No
[2020-06-10] MEDS ORDERED: DILTIAZEM 240 MG CAP.XL.24H PO SCH (21:00)
[2020-06-10] MEDS: SENNOSIDES/DOCUSATE SODIUM 1 TAB TABLET PO SCH (21:35)
[2020-06-11] MEDS: 0.9 % SODIUM CHLORIDE 10 ML SYRINGE IV SCH ×3 (05:53→22:02)
[2020-06-11 06:51] LABS: Basophils # (Auto) 0.06 K/mcL (0.00-0.20); Basophils % (Auto) 0.7 % (0.0-2.0); Eosinophils # (Auto) 0.32 K/mcL (0.00-0.70); Hematocrit 37.1 % (41.0-55.0); Hemoglobin 11.2 g/dL (13.5-16.5); Lymphocytes % (Auto) 13.7 % (15.0-49.0); Mean Cell Volume 84.1 fL (80.0-100.0); Mean Corpuscular HGB Conc 30.2 g/dL (31.0-36.0); Mean Platelet Volume 10.7 fL (7.4-10.4); Monocytes # (Auto) 0.78 K/mcL (0.10-0.90); Monocytes % (Auto) 9.7 % (1.0-12.0); Neutrophils % (Auto) 71.9 % (38.0-78.0); Platelet Count 335 K/mcL (140-440); RBC 4.41 M/mcL (4.50-5.90)
[2020-06-11 07:29] LABS: INR 2.4 (0.9-1.1); Prothrombin Time 27.1 sec (11.9-14.5)
--- NOTE | 2020-06-11 07:35 | Internal Med Progress Note ---
SUBJECTIVE Subjective Patient information: Note initiated : 06/11/20 at 7:29 am Service Date, if different from initiated Date: [] Patient: Pernell Granda 65 y/o M admitted on 06/04/20 for Shortness of breath. Chief Complaint: [] Interval history: 06/10 Overnight: Tolerating BiPAP overnight while sleeping. Bradycardia down to 30s bpm overnight while sleeping. Subjective: Mild SOB. Denies anxiety. Denies chest pain. Denies palpitation. Denies lethargy. 06/11 Tired. Poor sleep last night. On BiPAP last night. On 1 L of oxygen while awake. Starting to diurese well. States had a problem with oxygen for long time but is never been evaluated for home oxygen. Does not see a biochemist or calender inspector. Has never been evaluated for obstructive sleep apnea. Has occasional cough and has shortness of breath is marginally better than yesterday. Occasional nausea. Review of Systems: denies headache/fever/chills/vomiting/chest or abdominal pain/diarrhea. Otherwise see above. Constitutional Vitals: Vital Signs Temp Pulse Resp BP Pulse Ox 98.4 F 87 22 142/78 91 06/10/20 21:55 06/11/20 01:02 06/11/20 01:02 06/11/20 02:00 06/11/20 04:16 Period Temp Pulse Resp BP Sys/Sebastian Pulse Ox Last 24 Hr 97.1 F-98.4 F 74-87 20-24 112-142/67-86 91-100 Intake and Output 06/10/20 06/11/20 06/11/20 21:59 05:59 13:59 Intake Total 1000 780 Output Total 551 2300 600 Balance 449 -1520 -600 Weight 144.787 kg Intake & Output: Intake & Output 06/10/20 06/11/20 06/11/20 21:59 05:59 13:59 Intake Total 1000 780 Output Total 551 2300 600 Balance 449 -1520 -600 Weight 144.787 kg Intake: Oral 1000 780 Output: Void Amount 550 2300 600 # of times incontinent of urine 1 Other: Meal Dinner Percent of Meal Consumed 100% Feeding Ability Independent Urine Appearance Clear Clear Clear Urine Color Pale Pale Bright Yellow Urine Odor Normal # Voids 1 # Bowel Movements 1 1 Exam: General: Alert, Awake, No acute Distress Eyes/N/T: EOMI, Head/Neck: neck supple, CV: irreg irreg, No murmurs, Pulm: Clear b/l, no wheezing/rhonchi/rales Abd: soft, nontender, +BS x4 Ext: no clubbing/cyanosis, b/l LE 2+ to thighs Neuro: Alert, no focal deficits, moves all extremities, Skin: warm/dry OBJ DATA Labs CBC & Chem 7: 06/11/20 05:43 06/11/20 05:43 Labs: Abnormal Lab Results 06/11/20 06/11/20 06/10/20 05:44 05:43 07:40 RBC 4.41 L 3.77 L Hgb 11.2 L 9.7 L Hct 37.1 L 31.7 L MCH 25.4 L 25.7 L MCHC 30.2 L 30.6 L RDW 18.0 H 17.5 H MPV 10.7 H 10.7 H Lymph % (Auto) 13.7 L 14.6 L Lymph # (Auto) 1.10 L 1.20 L [place] # (Auto) 0.94 H PT 27.1 H INR 2.4 H Sodium Chloride Carbon Dioxide Anion Gap BUN Glucose Uric Acid Calcium Phosphorus Direct Bilirubin GGT AST ALT Alkaline Phosphatase Lactate Dehydrogenase Albumin Globulin Albumin/Globulin Ratio 06/10/20 06/10/20 06/09/20 07:40 05:19 05:52 RBC Hgb Hct MCH MCHC RDW MPV Lymph % (Auto) Lymph # (Auto) [place] # (Auto) PT 25.9 H 26.5 H INR 2.3 H 2.3 H Sodium 131 L Chloride 91 L Carbon Dioxide 35 H Anion Gap 5.0 L BUN Glucose Uric Acid Calcium Phosphorus Direct Bilirubin GGT AST 47 H ALT 105 H Alkaline Phosphatase 153 H Lactate Dehydrogenase Albumin 3.1 L Globulin 4.0 H Albumin/Globulin Ratio 0.8 L 06/09/20 06/09/20 06/08/20 05:52 05:52 06:09 RBC 3.93 L Hgb 10.2 L Hct 33.1 L MCH MCHC 30.8 L RDW 17.7 H MPV 10.8 H Lymph % (Auto) 14.0 L Lymph # (Auto) 1.20 L [place] # (Auto) PT 25.6 H INR 2.2 H Sodium 132 L Chloride 91 L Carbon Dioxide 32 H Anion Gap BUN Glucose Uric Acid 8.4 H Calcium Phosphorus 2.1 L Direct Bilirubin 0.4 H GGT 71 H AST 70 H ALT 150 H Alkaline Phosphatase 167 H Lactate Dehydrogenase 291 H Albumin Globulin 4.1 H Albumin/Globulin Ratio 0.9 L 06/08/20 06/08/20 06:09 06:09 RBC 3.97 L Hgb 10.2 L Hct 33.9 L MCH 25.7 L MCHC 30.1 L RDW 17.7 H MPV 10.5 H Lymph % (Auto) 12.8 L Lymph # (Auto) 1.15 L [place] # (Auto) PT INR Sodium 132 L Chloride 94 L Carbon Dioxide 33 H Anion Gap 5.0 L BUN 24 H Glucose 136 H Uric Acid 8.9 H Calcium 8.5 L Phosphorus Direct Bilirubin 0.5 H GGT 65 H AST 95 H ALT 186 H Alkaline Phosphatase 156 H Lactate Dehydrogenase 234 H Albumin Globulin 4.1 H Albumin/Globulin Ratio 0.9 L Meds: Medications Acetaminophen (Acetaminophen 325 Mg Tablet) 650 mg PO Q4-6HP PRN; Protocol PRN Reason: Per Pain Protocol/Fever > 101 Last Admin: 06/09/20 22:06 Dose: 650 mg Documented by: Albuterol/Ipratropium (Ipratropium/Albuterol 3 Ml Ampul.Neb) 3 ml NEB Q4HP PRN PRN Reason: Shortness Of Breath Last Admin: 06/09/20 07:58 Dose: 3 ml Documented by: Bisacodyl (Bisacodyl 10 Mg Supp.Rect) 10 mg [place] Q2-3DAYS PRN PRN Reason: Constipation Docusate Sodium (Docusate Sodium 100 Mg Capsule) 100 mg PO BID [facility] Last Admin: 06/10/20 21:35 Dose: Not Given Documented by: Furosemide (Furosemide 40 Mg Tablet) 40 mg PO TID [facility] Last Admin: 06/10/20 21:34 Dose: 40 mg Documented by: Gabapentin (Gabapentin 300 Mg Capsule) 300 mg PO BID [facility] Last Admin: 06/10/20 21:35 Dose: 300 mg Documented by: Hydralazine HCl (Hydralazine 20 Mg/Ml Vial) 10 mg IV Q4-6HP PRN PRN Reason: Hypertension Potassium Chloride 40 meq/ (Dextrose) 520 mls @ 130 mls/hr IV UD PRN PRN Reason: K+ = or < 3.5 Acetaminophen (Ofirmev) 650 mg in 65 mls @ 130 mls/hr IV Q6HP PRN; Protocol PRN Reason: Per Pain Protocol/Fever > 101 Magnesium Sulfate (Magnesium Sulfate) 2 gm in 50 mls @ 50 mls/hr IV UD PRN PRN Reason: MG = or < 1.7 Iron Carb/Multivit/[place]/Folic Acid (Multivit,Ther Iron,Ca,Fa & Min 1 Tablet) 1 tab PO DAILY [facility] Last Admin: 06/10/20 08:14 Dose: 1 tab Documented by: Lisinopril (Lisinopril 10 Mg Tablet) 10 mg PO DAILY [facility] Last Admin: 06/10/20 08:14 Dose: 10 mg Documented by: Lorazepam (Lorazepam 1 Mg Tablet) 1 mg PO Q6HP PRN PRN Reason: ANXIETY/SEDATION Last Admin: 06/10/20 21:34 Dose: 1 mg Documented by: Melatonin (Melatonin 3 Mg Tablet) 3 mg PO HSP PRN PRN Reason: Insomnia Metoprolol Succinate (Metoprolol Succinate 25 Mg Tab.Xl.24h) 25 mg PO DAILY [facility] Last Admin: 06/10/20 14:26 Dose: Not Given Documented by: Metoprolol Tartrate (Metoprolol Tartrate 5 Mg/5 Ml Vial) 5 mg IV Q5M PRN PRN Reason: Heart Rate > 140 bpm Metoprolol Tartrate (Metoprolol Tartrate 5 Mg/5 Ml Vial) 5 mg IV Q2HP PRN PRN Reason: Tachyarrhythmias HR>110 Nicotine (Nicotine 21 Mg Patch) 21 mg TOPICAL DAILY@1000 [facility] Last Admin: 06/10/20 11:49 Dose: 21 mg Documented by: Ondansetron HCl (Ondansetron 4 Mg Odt Tablet) 4 mg SL Q4-6HP PRN; Protocol PRN Reason: Nausea And Vomiting Last Admin: 06/05/20 20:17 Dose: 4 mg Documented by: Ondansetron HCl (Ondansetron 4 Mg/2 Ml Vial) 4 mg IV Q4-6HP PRN; Protocol PRN Reason: Nausea And Vomiting Polyethylene Glycol (Polyethylene Glycol 3350 17 Gm Packet) 17 gm PO DAILYP PRN PRN Reason: Constipation Potassium/Phosphorus/Sodium (Neutra Phos 1 Packet) 2 packet PO DAILYP PRN PRN Reason: PHOS <2.5 Senna/Docusate Sodium (Sennosides/Docusate Sodium 1 Tab Tablet) 1 tab PO HS [facility] Last Admin: 06/10/20 21:35 Dose: Not Given Documented by: Sodium Chloride (0.9 % Sodium Chloride 10 Ml Syringe) 10 ml IV Q8 [facility] Last Admin: 06/11/20 05:53 Dose: 10 ml Documented by: Spironolactone (Spironolactone 25 Mg Tablet) 50 mg PO BIDD [facility] Last Admin: 06/10/20 16:29 Dose: 50 mg Documented by: Thiamine HCl (Thiamine 100 Mg Tablet) 100 mg PO DAILY [facility] Last Admin: 06/10/20 08:14 Dose: 100 mg Documented by: Warfarin Sodium (Warfarin Per Pharmacy) 1 order PO UD [facility] A/P Narrative A/P Narrative: A: *CHF exacerbation (systolic/diastolic): improving -echocardiogram, showing global hypokinesis with LVEF 21%; diastolic dysfxn -improving diuresis *Acute hypoxic resp faliure: 2/2 above -bipap at night, now 1-2L NC in bed while awake *Atrial fibrillation RVR: improved *Hypokalemia: RESOLVED -Secondary to aggressive diuretics therapy as part of the treatment of CHF *Hyponatremia: 2/2 above *b/l LE ulcers/blisters, likely venous stasis: -Bilateral lower extremities Venous Doppler US to rule out DVT --> no DVT -seen by Dr. Willams *mod Pulm HTN: *ESTEPHANIA on CKD II: improved -Secondary to aggressive diuretics therapy as part of the treatment of CHF *Anemia, normocytic normochromic: *HTN: on ACEI/aldactone *Neuropathy: *Degenerative arthritis: *Anxiety: *Morbid Obese: *Transaminitis: 2/2 congestive hepatopathy, improved *Tobacco abuse: *Meth abuse: *Medical therapy noncompliance: P: -Lasix 40mg IV bid -f/u CXR improving -Metoprolol Succinate 25mg PO daily, Lisinopril 10mg PO daily, Aldactone 50mg PO BID -no Diltiazem given depressed LV systolic fxn -Consult wound care Dr. Willams, recs. appreciated -Smoking cessation counseling -f/u with cardiology -f/u with pulmonology for PFT's and sleep study -guarded prognosis with they way he has been living and not following up with medical care + meth/?homeless -ppx: warfarin per pharm Time Spent With Patient Time: Total time spent is greater than 50% in coordination of care (as sherry fowler) at patient's floor/unit and/or counseling patient: QUALITY VTE Deep Vein Thrombosis/Pulmonary Embolism Present on Admission: No
[2020-06-11 07:47] LABS: Blood Urea Nitrogen 21 mg/dL (8-23); Carbon Dioxide 32 mmol/L (22-30); Chloride 91 mmol/L (96-108); Glomerular Filtration Rate 56; Glucose 95 mg/dL (70-105)
[2020-06-11] MEDS ORDERED: FUROSEMIDE 40 MG/4 ML VIAL IV SCH (08:00)
[2020-06-11] MEDS ORDERED: ALBUMIN HUMAN 12.5 GM/50 ML BAG IV ONE (08:00)
--- NOTE | 2020-06-11 08:38 | XRay Report ---
HISTORY: Comment follow-up congestive heart failure FINDINGS: Heart is moderately enlarged but has diminished in size since 06/06/20. There is an alveolar opacity centrally in the right lower lobe. The remainder of the lung dorado are clear. The pulmonary vascular congestion seen on prior chest x-ray has nearly resolved. There may be a small subpulmonic pleural effusion on the right. IMPRESSION: Right lower lobe infiltrate. This could be residual asymmetric zone of pulmonary edema or superimposed pneumonia. Improving cardiomegaly and resolving pulmonary vascular congestion in the upper lung dorado and left lower thorax Interpreted and Authenticated by: Pernell Lancaster 06/11/20
[2020-06-11] MEDS: LISINOPRIL 10 MG TABLET PO SCH (08:53)
[2020-06-11] MEDS: DOCUSATE SODIUM 100 MG CAPSULE PO SCH ×3 (08:53→20:16)
[2020-06-11] MEDS: MULTIVIT,THER IRON,CA,FA & MIN 1 TABLET PO SCH (08:53)
[2020-06-11] MEDS: THIAMINE 100 MG TABLET PO SCH (08:53)
[2020-06-11] MEDS: METOPROLOL SUCCINATE 25 MG TAB.XL.24H PO SCH (08:53)
[2020-06-11] MEDS: SPIRONOLACTONE 25 MG TABLET PO SCH ×2 (08:53→15:29)
[2020-06-11] MEDS: GABAPENTIN 300 MG CAPSULE PO SCH ×2 (08:53→20:28)
[2020-06-11] MEDS ORDERED: LABETALOL 5 MG/ML ML IV PRN (09:58)
[2020-06-11] MEDS ORDERED: hydrOXYzine 25 MG TABLET PO PRN (09:58)
[2020-06-11] MEDS: NICOTINE 21 MG PATCH TOPICAL SCH (10:44)
[2020-06-11] MEDS ORDERED: WARFARIN 5 MG TABLET PO SCH (14:00)
--- NOTE | 2020-06-11 14:23 | Discharge Summary ---
Discharge Provider Provider Patient information: Note initiated : 06/11/20 at 2:21 pm Service Date, if different from initiated Date: [] Patient: Pernell Granda 65 y/o M admitted on 06/04/20 for Shortness of breath. Chief Complaint: [] Date of admission: 06/04/20 16:12 Discharge date: 06/13/20 Primary care physician: Noam Caputo DO Consults: 06/04/20 Consult to Physician [CONS] Stat Comment: Consulting Provider: Ahsan Aquino Reason For Exam: Physician to Consult 06/06/20 11:02 Consult to Physician [CONS] Routine Comment: Consulting Provider: Roderick Willams Reason For Exam: Physician to Consult Discharge Meds Discharge Medications Home Medications spironolactone 25 mg PO QAM 01/30/20 [History Confirmed 06/04/20 Last Taken 01/30/20] torsemide 20 mg PO BID 01/30/20 [History Confirmed 06/04/20 Last Taken 01/30/20] warfarin 10 mg PO DAILY 01/30/20 [History Confirmed 06/04/20 Last Taken 01/30/20] tramadol 50 mg PO Q6H PRN #10 tab 02/28/20 [Rx Confirmed 06/04/20 Last Taken Unknown] gabapentin [Neurontin] 300 mg PO BID 06/04/20 [History Confirmed 06/04/20 Last Taken Unknown] lisinopril 10 mg PO DAILY #1 tab 06/11/20 [Rx Last Taken Unknown] metoprolol succinate 25 mg PO DAILY #30 tab 06/11/20 [Rx Last Taken Unknown] COURSE Hospital Course Hospital course: History of present illness: Mr. Granda is a 65 year old M with history of severe peripheral disease/A. fib on anticoagulation/morbid obesity/chronic lower extremity lymphedema/venous ulcers who presents to the ER with worsening shortness of breath/lightheadedness dizziness and chest palpitation. Patient symptoms started roughly 4 days prior to presentation with gradually progressive dyspnea/orthopnea and has not been able to sleep over the last 4 nights or able to lay supine. He has associated nausea and heaving. Increasing concerns he now presents for evaluation. Initial work-up was consistent with A. fib RVR and acute pulmonary edema on chest imaging with pleural effusion. Hospital service was consulted after patient was started on diltiazem drip achieving rate control around 120. Also patient was started on antibiotic coverage after cultures were drawn for suspicious infiltrates noted on chest imaging. At the time of my evaluation patient is very anxious, unable to talk in full sentences. On for his oxygen maintaining sats mid 90s which has improved from low 80s on presentation. He denies hemoptysis/productive sputum/fever, shaking chills, diarrhea, hematuria, dysuria. He endorses a chronic lower extremity dusky discoloration below the knee with ulceration second toe. Endorses that he has had a lower extremity bypass that has improved the circulation. Is currently on anticoagulation on Coumadin with current INR at 5.3. He has been fired from his cardiology and PCP care due to poor adherence and a no-show for appointments. Interval history: 06/10 Overnight: Tolerating BiPAP overnight while sleeping. Bradycardia down to 30s bpm overnight while sleeping. Subjective: Mild SOB. Denies anxiety. Denies chest pain. Denies palpitation. Denies lethargy. 06/11 Tired. Poor sleep last night. On BiPAP last night. On 1 L of oxygen while awake. Starting to diurese well. States had a problem with oxygen for long time but is never been evaluated for home oxygen. Does not see a patient care nursing assistant or freight traffic consultant. Has never been evaluated for obstructive sleep apnea. Has occasional cough and has shortness of breath is marginally better than yesterday. Occasional nausea. RV systolic also moderately reduced. Had a conversation with the patient and his family members present as well as case planner and nurse. Discussed current treatment plan and potential discharge to rehab tomorrow. Discussed importance of medication compliance and follow-up with physicians. Readdressed CODE STATUS and he stated he he wanted to be a DO NOT RESUSCITATE which he already had in his as advanced directive paperwork. 06/12 Doing well. Good diuresis. Oxygenating on room air awake and asleep. Awaiting placement 06/13 Patient feeling well doing well. A: *CHF exacerbation (systolic/diastolic): improving -echocardiogram, showing global hypokinesis with LVEF 21%; diastolic dysfxn *Acute hypoxic resp faliure: 2/2 above *Atrial fibrillation RVR: improved *Hypokalemia: RESOLVED *Hyponatremia: 2/2 above *b/l LE ulcers/blisters, likely venous stasis: -Bilateral lower extremities Venous Doppler US to rule out DVT --> no DVT -seen by Dr. Willams *mod Pulm HTN: *ESTEPHANIA on CKD II: improved *Anemia, normocytic normochromic: *HTN: on ACEI/aldactone *Neuropathy: *Degenerative arthritis: *Anxiety: *Morbid Obese: *Transaminitis: 2/2 congestive hepatopathy, improved *Tobacco abuse: *Meth abuse: *Medical therapy noncompliance: Discharge diagnosis: Systolic and diastolic heart failure left and right acute hypoxic respirato Secondary discharge diagnosis: A. fib RVR electrolyte abnormalities lower extremity venous stasis ulcers and blisters moderate pulmonary pretension acute kidney injury chronic anemia hypertension neuropathy anxiety morbid obesity transaminitis tobacco abuse drug abuse medical therapy noncompliance Time Spent with Patient Time attestation: Total time spent providing and/or coordinating discharge services: Time spent: Greater than 30 minutes EXAM Constitutional Vitals: Temp Pulse Resp BP Pulse Ox 96.4 F L 87 20 115/92 100 06/11/20 12:35 06/11/20 01:02 06/11/20 08:00 06/11/20 12:35 06/11/20 12:35 Discharge Data Data Completed and Pending Labs on day of discharge: Labs from last 24 hours 06/11/20 06/11/20 06/11/20 05:44 05:43 05:43 WBC 8.0 RBC 4.41 L Hgb 11.2 L Hct 37.1 L MCV 84.1 MCH 25.4 L MCHC 30.2 L RDW 18.0 H Plt Count 335 MPV 10.7 H Neut % (Auto) 71.9 Lymph % (Auto) 13.7 L [place] % (Auto) 9.7 Eos % (Auto) 4.0 Baso % (Auto) 0.7 Lymph # (Auto) 1.10 L [place] # (Auto) 0.78 Eos # (Auto) 0.32 Baso # (Auto) 0.06 Absolute Neutrophils 5.78 PT 27.1 H INR 2.4 H Sodium 131 L Potassium 4.2 Chloride 91 L Carbon Dioxide 32 H Anion Gap 8.0 BUN 21 Creatinine 1.3 H GFR Calculation 56 Glucose 95 Calcium 9.0 Discharge Plan Patient/Caregiver Discharge Instructions Activity: increase activity as tolerated Diet: Cardiac Instructions: Heart Failure (GEN), A-fib (Atrial Fibrillation) (GEN), Using Oxygen at Home (GEN), Sepsis (GEN), Fluid Restriction (GEN), Pneumonia (GEN) Activity Restrictions/Additional Instructions: Continue cardiac diet, sit upright for all meals to avoid aspiration. Referral to see patient care nursing assistant in 3 to 10 days. Referral to see freight traffic consultant for obstructive sleep apnea evaluation and COPD evaluation 3-14 days Prescriptions: New metoprolol succinate 25 mg Tablet Extended Release 24 Hr 25 mg PO DAILY Qty: 30 RF: 0 Continued spironolactone 25 mg tablet 25 mg PO QAM RF: 0 warfarin 5 mg tablet 10 mg PO DAILY RF: 0 torsemide 20 mg tablet 20 mg PO BID RF: 0 tramadol 50 mg tablet 50 mg PO Q6H PRN (Reason: pain) Qty: 10 RF: 0 gabapentin [Neurontin] 300 mg capsule 300 mg PO BID RF: 0 Changed lisinopril 40 mg tablet 10 mg PO DAILY Qty: 1 RF: 0 Discontinued naproxen sodium [Anaprox DS] 550 mg tablet 550 mg PO BID PRN (Reason: Pain) RF: 0 Other Ambulatory Orders: Wound Care Instructions (CONT) Location: None Selected Ordered By: Roderick Willams Follow Up Plan Follow up with: Roderick Willams MD [Physician] - Noam Caputo DO [Primary Care Provider] - Patient Disposition: Xfer SNF Prognosis: Serious Rehab Potential: Fair I certify that the patient requires SNF services: Yes Overall status at discharge: patient is progressing back to baseline Discharge Orders: Discharge Order (Routine); Ordered 06/13/20 Ordered By: Radhames Huerta [facility] Deep Vein Thrombosis/Pulmonary Embolism Present on Admission: No
[2020-06-11] MEDS: TORSEMIDE 10 MG TABLET PO SCH (15:29)
[2020-06-11] MEDS: SENNOSIDES/DOCUSATE SODIUM 1 TAB TABLET PO SCH (20:16)
[2020-06-11] MEDS: LORazepam 1 MG TABLET PO PRN (20:28)
[2020-06-11] MEDS ORDERED: MELATONIN 3 MG TABLET PO SCH ×2 (21:00)
[2020-06-12] MEDS: 0.9 % SODIUM CHLORIDE 10 ML SYRINGE IV SCH ×3 (05:36→23:39)
[2020-06-12 07:26] LABS: INR 2.4 (0.9-1.1)
[2020-06-12] MEDS: SPIRONOLACTONE 25 MG TABLET PO SCH ×2 (09:27→16:10)
[2020-06-12] MEDS: THIAMINE 100 MG TABLET PO SCH (09:27)
[2020-06-12] MEDS: GABAPENTIN 300 MG CAPSULE PO SCH ×2 (09:27→21:58)
[2020-06-12] MEDS: MULTIVIT,THER IRON,CA,FA & MIN 1 TABLET PO SCH (09:27)
[2020-06-12] MEDS: NICOTINE 21 MG PATCH TOPICAL SCH (09:27)
[2020-06-12] MEDS: METOPROLOL SUCCINATE 25 MG TAB.XL.24H PO SCH (09:27)
[2020-06-12] MEDS: TORSEMIDE 10 MG TABLET PO SCH ×2 (09:27→16:10)
[2020-06-12] MEDS: DOCUSATE SODIUM 100 MG CAPSULE PO SCH ×2 (09:28→21:49)
[2020-06-12] MEDS: ACETAMINOPHEN 325 MG TABLET PO PRN ×3 (09:36→23:39)
[2020-06-12] MEDS ORDERED: WARFARIN 7.5 MG TABLET PO ONE (14:00)
--- NOTE | 2020-06-12 17:40 | General Surgery Progress Note ---
SUBJECTIVE Subjective Patient information: Note initiated : 06/12/20 at 5:35 pm Service Date, if different from initiated Date: [] Patient: Pernell Granda 65 y/o M admitted on 06/04/20 for Shortness of breath. Chief Complaint: [] Additional PMFSH (Level 3 Only): Patient looks good and feels well. Breathing easier and is conversational. Saw him in morning and reassessed him again. Constitutional Vitals: Vital Signs Temp Pulse Resp BP Pulse Ox 98.7 F 87 16 131/81 91 06/12/20 16:36 06/11/20 01:02 06/12/20 16:36 06/12/20 16:36 06/12/20 16:36 Period Temp Pulse Resp BP Sys/Sebastian Pulse Ox Last 24 Hr 97.8 F-98.7 F 14-22 118-131/59-88 91-100 Intake and Output 06/12/20 06/12/20 06/12/20 05:59 13:59 21:59 Intake Total 300 720 320 Output Total 625 1350 600 Balance -325 -630 -280 Intake & Output: Intake & Output 06/12/20 06/12/20 06/12/20 05:59 13:59 21:59 Intake Total 300 720 320 Output Total 625 1350 600 Balance -325 -630 -280 Intake: Oral 300 720 320 Output: Void Amount 625 1350 600 Other: Meal Lunch Percent of Meal Consumed 100% Urine Appearance Clear Clear Urine Color Pale Pale Exam: AVSS. tachycardia resolved. O2 NC is being titrated down. CXR : Resolving CHF and pulmonary congestion. LEG wounds cleaned earlier by Wound Care Nurse. No signs of acute DVT or PE. Labs reviewed. A/P Narrative A/P Narrative: Assessment: Resolving CHF and Acute pulmonary congestion. Negative for DVT. Post phlebitis syndrome changes both legs. Stable. Plan for discharge noted. Plan: Continue with local wound care. If discharged f/u at wound care center electively. Time Spent With Patient Time: Total time spent is greater than 50% in coordination of care (as documented) at patient's floor/unit and/or counseling patient: Total time spent with greater than 50% in coordination of care (as documented) at patient's floor/unit and/or counseling patient:: 25 - 35 minutes
[2020-06-12] MEDS ORDERED: hydrOXYzine 25 MG TABLET PO PRN (20:37)
[2020-06-12] MEDS ORDERED: ONDANSETRON 4 MG ODT TABLET SL PRN (20:37)
[2020-06-12] MEDS ORDERED: ACETAMINOPHEN 650 MG/65 ML BAG IV PRN (20:37)
[2020-06-12] MEDS ORDERED: NEUTRA PHOS 1 PACKET PO PRN (20:37)
[2020-06-12] MEDS ORDERED: ONDANSETRON 4 MG/2 ML VIAL IV PRN (20:37)
[2020-06-12] MEDS ORDERED: POLYETHYLENE GLYCOL 3350 17 GM PACKET PO PRN (20:37)
[2020-06-12] MEDS ORDERED: BISACODYL 10 MG SUPP.RECT PR PRN (20:37)
[2020-06-12] MEDS ORDERED: POTASSIUM CHLORIDE 40 MEQ in DEXTROSE 5% IN WATER 500 ML IV PRN (20:37)
[2020-06-12] MEDS ORDERED: hydrALAZINE 20 MG/ML VIAL IV PRN (20:37)
[2020-06-12] MEDS ORDERED: METOPROLOL TARTRATE 5 MG/5 ML VIAL IV PRN ×2 (20:37)
[2020-06-12] MEDS ORDERED: LORazepam 1 MG TABLET PO PRN (20:37)
[2020-06-12] MEDS ORDERED: MAGNESIUM SULFATE 2 GM/50 ML BAG IV PRN (20:37)
[2020-06-12] MEDS ORDERED: IPRATROPIUM/ALBUTEROL 3 ML AMPUL.NEB NEB PRN (20:37)
[2020-06-12] MEDS ORDERED: LABETALOL 5 MG/ML ML IV PRN (20:37)
[2020-06-12] MEDS ORDERED: MELATONIN 3 MG TABLET PO SCH (21:00)
[2020-06-12] MEDS ORDERED: SENNOSIDES/DOCUSATE SODIUM 1 TAB TABLET PO SCH (21:00)
[2020-06-13] MEDS: ACETAMINOPHEN 325 MG TABLET PO PRN ×2 (03:30→10:12)
[2020-06-13] MEDS: 0.9 % SODIUM CHLORIDE 10 ML SYRINGE IV SCH ×2 (03:30→04:10)
[2020-06-13 07:12] LABS: POC INR 2.6 (0.8-1.2); POC Pro Time 30.2 sec (11.9-14.5)
[2020-06-13] MEDS ORDERED: SPIRONOLACTONE 25 MG TABLET PO SCH (08:00)
[2020-06-13] MEDS ORDERED: TORSEMIDE 10 MG TABLET PO SCH (08:00)
[2020-06-13] MEDS: DOCUSATE SODIUM 100 MG CAPSULE PO SCH (08:27)
[2020-06-13] MEDS: GABAPENTIN 300 MG CAPSULE PO SCH (08:28)
[2020-06-13] MEDS ORDERED: MULTIVIT,THER IRON,CA,FA & MIN 1 TABLET PO SCH (09:00)
[2020-06-13] MEDS ORDERED: THIAMINE 100 MG TABLET PO SCH (09:00)
[2020-06-13] MEDS ORDERED: METOPROLOL SUCCINATE 25 MG TAB.XL.24H PO SCH (09:00)
--- NOTE | 2020-06-13 09:59 | Internal Med Progress Note ---
SUBJECTIVE Subjective Patient information: Note initiated : 06/12/20 at 9:57 am Service Date, if different from initiated Date: [] Patient: Pernell Granda 65 y/o M admitted on 06/04/20 for Shortness of breath. Chief Complaint: [] Interval history: 06/10 Overnight: Tolerating BiPAP overnight while sleeping. Bradycardia down to 30s bpm overnight while sleeping. Subjective: Mild SOB. Denies anxiety. Denies chest pain. Denies palpitation. Denies lethargy. 06/11 Tired. Poor sleep last night. On BiPAP last night. On 1 L of oxygen while awake. Starting to diurese well. States had a problem with oxygen for long time but is never been evaluated for home oxygen. Does not see a damaged freight inspector or med surg rn. Has never been evaluated for obstructive sleep apnea. Has occasional cough and has shortness of breath is marginally better than yesterday. Occasional nausea. 06/12 Doing well. Good diuresis. Oxygenating on room air awake and asleep. Awaiting placement Review of Systems: denies headache/fever/chills/vomiting/chest or abdominal pain/diarrhea. Otherwise see above. Constitutional Vitals: Vital Signs Temp Pulse Resp BP Pulse Ox 97.7 F 62 20 123/81 96 06/13/20 07:56 06/13/20 07:56 06/13/20 07:56 06/13/20 07:56 06/13/20 07:56 Period Temp Pulse Resp BP Sys/Sebastian Pulse Ox Last 24 Hr 97.7 F-98.7 F 62-101 16-20 123-138/70-84 91-98 Intake and Output 06/12/20 06/13/20 06/13/20 21:59 05:59 13:59 Intake Total 320 840 480 Output Total 600 1503 250 Balance -280 -663 230 Weight 142.23 kg Intake & Output: Intake & Output 06/12/20 06/13/20 06/13/20 21:59 05:59 13:59 Intake Total 320 840 480 Output Total 600 1503 250 Balance -280 -663 230 Weight 142.23 kg Intake: Oral 320 840 480 Output: Void Amount 600 1500 250 # of times incontinent of urine 3 Other: Meal Dinner Nourishment/Supplement Percent of Meal Consumed 100% 100% Urine Appearance Clear Urine Color Bright Yellow Bright Yellow Urine Odor Strong Exam: General: Alert, Awake, No acute Distress Eyes/N/T: EOMI, Head/Neck: neck supple, CV: irreg irreg, No murmurs, Pulm: Clear b/l, no wheezing/rhonchi/rales Abd: soft, nontender, +BS x4 Ext: no clubbing/cyanosis, b/l LE 2+ to thighs Neuro: Alert, no focal deficits, moves all extremities, Skin: warm/dry OBJ DATA Labs CBC & Chem 7: 06/11/20 05:43 06/11/20 05:43 Labs: Abnormal Lab Results 06/13/20 06/12/20 06/11/20 07:05 05:12 05:44 RBC Hgb Hct MCH MCHC RDW MPV Lymph % (Auto) Lymph # (Auto) POC PT 30.2 H PT 27.0 H 27.1 H POC INR 2.6 H INR 2.4 H 2.4 H Sodium Chloride Carbon Dioxide Creatinine 06/11/20 06/11/20 05:43 05:43 RBC 4.41 L Hgb 11.2 L Hct 37.1 L MCH 25.4 L MCHC 30.2 L RDW 18.0 H MPV 10.7 H Lymph % (Auto) 13.7 L Lymph # (Auto) 1.10 L POC PT PT POC INR INR Sodium 131 L Chloride 91 L Carbon Dioxide 32 H Creatinine 1.3 H Meds: Medications Acetaminophen (Acetaminophen 325 Mg Tablet) 650 mg PO Q4-6HP PRN; Protocol PRN Reason: Per Pain Protocol/Fever > 101 Last Admin: 06/13/20 03:30 Dose: 650 mg Documented by: Albuterol/Ipratropium (Ipratropium/Albuterol 3 Ml Ampul.Neb) 3 ml NEB Q4HP PRN PRN Reason: Shortness Of Breath Bisacodyl (Bisacodyl 10 Mg Supp.Rect) 10 mg DC Q2-3DAYS PRN PRN Reason: Constipation Docusate Sodium (Docusate Sodium 100 Mg Capsule) 100 mg PO BID [facility] Last Admin: 06/13/20 08:27 Dose: Not Given Documented by: Gabapentin (Gabapentin 300 Mg Capsule) 300 mg PO BID [facility] Last Admin: 06/13/20 08:28 Dose: 300 mg Documented by: Hydralazine HCl (Hydralazine 20 Mg/Ml Vial) 10 mg IV Q4-6HP PRN PRN Reason: Hypertension Hydroxyzine HCl (Hydroxyzine 25 Mg Tablet) 50 mg PO TIDP PRN PRN Reason: Anxiety Potassium Chloride 40 meq/ (Dextrose) 520 mls @ 130 mls/hr IV UD PRN PRN Reason: K+ = or < 3.5 Acetaminophen (Ofirmev) 650 mg in 65 mls @ 130 mls/hr IV Q6HP PRN; Protocol PRN Reason: Per Pain Protocol/Fever > 101 Magnesium Sulfate (Magnesium Sulfate) 2 gm in 50 mls @ 50 mls/hr IV UD PRN PRN Reason: MG = or < 1.7 Iron Carb/Multivit/Locomotive Mechanic Apprentice/Folic Acid (Multivit,Ther Iron,Ca,Fa & Min 1 Tablet) 1 tab PO DAILY [facility] Last Admin: 06/13/20 08:27 Dose: 1 tab Documented by: Labetalol HCl (Labetalol 5 Mg/Ml Ml) 0 mg IV Q2HP PRN PRN Reason: Hypertension Lorazepam (Lorazepam 1 Mg Tablet) 1 mg PO Q6HP PRN PRN Reason: ANXIETY/SEDATION Melatonin (Melatonin 3 Mg Tablet) 3 mg PO QHS [facility] Last Admin: 06/12/20 21:58 Dose: 3 mg Documented by: Metoprolol Succinate (Metoprolol Succinate 25 Mg Tab.Xl.24h) 25 mg PO DAILY [facility] Last Admin: 06/13/20 08:28 Dose: 25 mg Documented by: Metoprolol Tartrate (Metoprolol Tartrate 5 Mg/5 Ml Vial) 5 mg IV Q2HP PRN PRN Reason: Tachyarrhythmias HR>110 Metoprolol Tartrate (Metoprolol Tartrate 5 Mg/5 Ml Vial) 5 mg IV Q5M PRN PRN Reason: Heart Rate > 140 bpm Nicotine (Nicotine 21 Mg Patch) 21 mg TOPICAL DAILY@1000 SUE Ondansetron HCl (Ondansetron 4 Mg Odt Tablet) 4 mg SL Q4-6HP PRN; Protocol PRN Reason: Nausea And Vomiting Ondansetron HCl (Ondansetron 4 Mg/2 Ml Vial) 4 mg IV Q4-6HP PRN; Protocol PRN Reason: Nausea And Vomiting Polyethylene Glycol (Polyethylene Glycol 3350 17 Gm Packet) 17 gm PO DAILYP PRN PRN Reason: Constipation Potassium/Phosphorus/Sodium (Neutra Phos 1 Packet) 2 packet PO DAILYP PRN PRN Reason: PHOS <2.5 Senna/Docusate Sodium (Sennosides/Docusate Sodium 1 Tab Tablet) 1 tab PO [facility] Last Admin: 06/12/20 21:50 Dose: Not Given Documented by: Sodium Chloride (0.9 % Sodium Chloride 10 Ml Syringe) 10 ml IV Q8 [facility] Last Admin: 06/13/20 04:10 Dose: Not Given Documented by: Spironolactone (Spironolactone 25 Mg Tablet) 50 mg PO BIDD [facility] Last Admin: 06/13/20 08:27 Dose: 50 mg Documented by: Thiamine HCl (Thiamine 100 Mg Tablet) 100 mg PO DAILY [facility] Last Admin: 06/13/20 08:28 Dose: 100 mg Documented by: Torsemide (Torsemide 10 Mg Tablet) 20 mg PO BIDD [facility] Last Admin: 06/13/20 08:28 Dose: 20 mg Documented by: Warfarin Sodium (Warfarin Per Pharmacy) 1 order PO UD [facility] A/P Narrative A/P Narrative: A: *CHF exacerbation (systolic/diastolic): improving -echocardiogram, showing global hypokinesis with LVEF 21%; diastolic dysfxn -improving diuresis *Acute hypoxic resp faliure: 2/2 above -bipap at night, now 1-2L NC in bed while awake *Atrial fibrillation RVR: improved *Hypokalemia: RESOLVED -Secondary to aggressive diuretics therapy as part of the treatment of CHF *Hyponatremia: 2/2 above *b/l LE ulcers/blisters, likely venous stasis: -Bilateral lower extremities Venous Doppler US to rule out DVT --> no DVT -seen by Dr. Willams *mod Pulm HTN: *ESTEPHANIA on CKD II: improved -Secondary to aggressive diuretics therapy as part of the treatment of CHF *Anemia, normocytic normochromic: *HTN: on ACEI/aldactone *Neuropathy: *Degenerative arthritis: *Anxiety: *Morbid Obese: *Transaminitis: 2/2 congestive hepatopathy, improved *Tobacco abuse: *Meth abuse: *Medical therapy noncompliance: P: -iv lasix to torsemide -Metoprolol Succinate 25mg PO daily, Lisinopril 10mg PO daily, Aldactone 50mg PO BID -no Diltiazem given depressed LV systolic fxn -Consult wound care Dr. Willams, recs. appreciated -Smoking cessation counseling -f/u with cardiology -f/u with pulmonology for PFT's and sleep study -guarded prognosis with they way he has been living and not following up with medical care + meth/?homeless -ppx: warfarin per pharm Time Spent With Patient Time: Total time spent is greater than 50% in coordination of care (as documented) at patient's floor/unit and/or counseling patient: [facility] Deep Vein Thrombosis/Pulmonary Embolism Present on Admission: No
[2020-06-13] MEDS ORDERED: NICOTINE 21 MG PATCH TOPICAL SCH (10:00)
== END 2020-06-13 11:25 | DRG 291 ==
LOC: ED 10:45 → ICU 16:12 → MEDSUR 06-12 20:20
PROVIDERS: ADMIT Internal Medicine; ATTEND Internal Medicine